=== PATIENT | male | born 1945 | race African-American/Black ===

== ENCOUNTER 2025-02-14 12:20 | Outpatient (CLI) | payer MEDICARE, SELFPAY ==
--- OUTSIDE RECORDS SUMMARY | 2025-02-14 12:48 | XMS_ITS | Encounter Summary ---
Author Organization [facility] Address Formerly [facility] [place] [address] Care Team Providers Care Screen Writer Name Role Phone Frank Nielsen MD Primary Care Provider David Bradshaw MD Unavailable [phone] Ani Burnett CURTAIN INSPECTOR-C Unavailable [phone] Yesica Tony CURTAIN INSPECTOR Unavailable [phone] Adonis Mirza OD Unavailable [phone] Reason for Visit * Reason Comments Information Encounter Details Date Type Department Care Team (Late st Contact Info) Description 04/08/2020 Clinical Support [facility] Medical Group Multispecialty Care - [facility] [address] [facility] [place] [address] Cherrie Onofre APNP [address] [place] [address] Information Social History Tobacco Use Types Packs/Day Years Used Date Smoking Tobacco: Never Smokeless Tobacco: Never Alcohol Use Standard Drinks/Week Comments Yes 0 (1 standard drink = 0.6 oz pur e alcohol) very little AUDIT-C Answer Date Recorded Frequency of Alcohol Consumption Monthly or less 10/06/2018 Average Number of Drinks Not on file 019 Frequency of Binge Drinking Not on file 03/2019 PHQ-2 Answer Date Recorded PHQ-2 Score 1 02/27/2020 Sex and Gender Information Value Date Recorded Sex Assigned at Male 10/30/2024 11:15 AM SHOE DESIGNER Legal Sex Male 9:58 AM CDT Gender Identity Not on file Sexual Orientation Not on file Occupation Industry Job Start Date Job End Date Not on file Not on file Not on file Not on file COVID-19 Exposure Response Date Recorded In the last month, have you been in contact with someone who was confirmed or suspected to have Coronavirus / COVID-19? No / Unsure 03/18/2020 1:47 PM CDT documented as of this encounter Plan of Treatment Upcoming Encounters Date Type Department Care Team (Late st Contact Info) Description 03/19/2025 9:30 AM CDT Office Visit [facility] THREE [facility], [address] [address] David Bradshaw MD Three [facility]. [address] [address] 07/31/2025 2:00 PM SHOE DESIGNER Office Visit [facility] Medical Group Multispecialty Care - [facility] [address] [facility], [address] [place] [address] Shannan Gao APRN [address] [facility] [address] [place] [address] documented as of this encounter Visit Diagnoses Not on filedocumented in this encounter Additional Health Concerns Infection Onset Date Last Indicated Resolved Time COVID-19 Rule Out 09/08/2021 09/08/2021 09/08/2021 9:34 AM SHOE DESIGNER COVID-19 Rule Out 02/17/2022 02/17/2022 02/17/2022 9:41 AM CDT COVID-19 Rule Out 08/24/2023 08/24/2023 08/24/2023 3:16 PM SHOE DESIGNER Influenza - Seasonal 08/24/2023 08/24/2023 024 12:33 AM SHOE DESIGNER COVID-19 Rule Out 05/25/2024 05/25/2024 05/25/2024 2:37 PM CDT documented as of this encounter Care Teams Screen Writer Relationship Specialty Start Date End Date Frank Nielsen MD [address] [place] [address] PCP - General 03/08/17 David Bradshaw MD Three [facility] [address] [place] [address] [place] Dental Nurse CARDIOVASCULAR DISEASE 08/24/18 Ani Burnett CURTAIN INSPECTOR-C [facility] [address] [place] [address] Nurse Practitioner CARDIOLOGY 06/14/23 Yesica Tony NP Three [facility]. [address] [place], [place] [address] Nurse Practitioner UROLOGY 06/14/23 06/14/23 Adonis Mirza, OD [address] [facility] [place] [address] Monorail Helper 06/14/23 documented as of this encounter
--- OUTSIDE RECORDS SUMMARY | 2025-02-14 12:48 | XMS_ITS | Encounter Summary ---
Author Organization [facility] Address Count includes the [facility] [place] [address] Care Team Providers Care Vacuum Kettle Cook Name Role Phone Frank Nielsen MD Primary Care Provider David Bradshaw MD Unavailable [phone] Ani Burnett FISH PROCESSING SUPERVISOR-C Unavailable [phone] Yesica Tony FISH PROCESSING SUPERVISOR Unavailable [phone] Adonis Mirza OD Unavailable Encounter Details Date Type Department Care Team (Late st Contact Info) Description 09/21/2022 Abstract [facility] BUSINESS OFFICE [facility] [place] [address] Abstract, Doc Med Group Social History Tobacco Use Types Packs/Day Years Used Date Smoking Tobacco: Never Smokeless Tobacco: Never Comments:NO Alcohol Use Standard Drinks/Week Comments Yes 0 (1 standard drink = 0.6 oz pur e alcohol) very little AUDIT-C Answer Date Recorded Frequency of Alcohol Consumption Monthly or less 10/06/2018 Average Number of Drinks Not on file 019 Frequency of Binge Drinking Not on file 03/2019 PHQ-2 Answer Date Recorded PHQ-2 Score - If the patient scores above 3, please move on to questions 3-9 0 07/30/2022 Sex and Gender Information Value Date Recorded Sex Assigned at Male 10/30/2024 11:15 AM POLICE DETENTION ATTENDANT Legal Sex Male 9:58 AM CDT Gender Identity Not on file Sexual Orientation Not on file Occupation Industry Job Start Date Job End Date Not on file Not on file Not on file Not on file COVID-19 Exposure Response Date Recorded In the last 10 days, have yo u been in contact with someone who was confirmed or suspected to have Coronavirus/COVID-19? No / Unsure 09/07/2022 2:46 PM POLICE DETENTION ATTENDANT documented as of this encounter Plan of Treatment Upcoming Encounters Date Type Department Care Team (Late st Contact Info) Description 03/19/2025 9:30 AM CDT Office [facility] [facility] [address] [place] [address] David Bradshaw MD Three [facility]. [facility] [address] [place] [address] 07/31/2025 2:00 PM POLICE DETENTION ATTENDANT Office Visit [facility] Medical Group Multispecialty Care - [facility] [address] [facility], [address] [place] [address] Shannan Gao, LETY [address] [facility] [address] [place] [address] documented as of this encounter Visit Diagnoses Not on filedocumented in this encounter Additional Health Concerns Infection Onset Date Last Indicated Resolved Time COVID-19 Rule Out 08/24/2023 08/24/2023 08/24/2023 3:16 PM POLICE DETENTION ATTENDANT Influenza - Seasonal 08/24/2023 08/24/2023 024 12:33 AM POLICE DETENTION ATTENDANT COVID-19 Rule Out 05/25/2024 05/25/2024 05/25/2024 2:37 PM CDT Assessment Noted Time PHQ-9 Depression Total Score: 0 06/09/20 21 2:07 PM CDT documented as of this encounter Care Teams Vacuum Kettle Cook Relationship Specialty Start Date End Date Frank Nielsen MD [address] [place] [address] PCP - General 03/08/17 David Bradshaw MD [facility]. [facility] [address] [place] [address] Wheelwright Spot Welder Body Assembly CARDIOVASCULAR DISEASE 08/24/18 Ani Burnett, FISH PROCESSING SUPERVISOR-C [facility]. [facility] [address] [place] [address] Nurse Practitioner CARDIOLOGY 06/14/23 Yesica Tony NP [facility]. [facility] [address] [place] [address] Nurse Practitioner UROLOGY 06/14/23 06/14/23 Adonis Mirza, OD [address] [place] [address] Group Program Manager 06/14/23 documented as of this encounter
--- OUTSIDE RECORDS SUMMARY | 2025-02-14 12:48 | XMS_ITS | Encounter Summary ---
Author Organization [facility] Facility Care Team Providers Care Facility Maintenance Helper Name Role Phone Frank Nielsen MD Primary Care Provider [phone] Naye Nunn MD Unavailable [phone] Encounter Details Date Type Department Care Team (Latest Contact Info) Description 06/06/2018 Orders Only Juventino Paniagua MD [address] [place] [address] Social History Tobacco Use Types Packs/Day Years Used Date Smoking Tobacco: Never Smokeless Tobacco: Never Alcohol Use Standard Drinks/Week Comments Yes 0 (1 standard drink = 0.6 oz pur e alcohol) social Sex and Gender Information Value Date Recorded Sex Assigned at Not on file Legal Sex Male 8:05 PM SIMPLEX OPERATOR Gender Identity Not on file Sexual Orientation Not on file documented as of this encounter Plan of Treatment Upcoming Encounters Date Type Department Care Team (Latest Contact Info) Description 09/04/2108 Orders Only Juventino Paniagua MD [address] [place] [id number] documented as of this encounter Procedures Procedure Name Priority Date/Time Associated Diagnosis Comments PROCEDURE - RESULT 06/06/2018 12 :00 AM CDT documented in this encounter Results * PROCEDURE - RESULT (06/06/2018 12:00 AM CDT) Narrative 06/06/2018 12:00 AM CDT Ordered by an unspecified provider. us Historical Provider Final Res ult documented in this encounter Visit Diagnoses Not on filedocumented in this encounter Care Teams Facility Maintenance Helper Relationship Specialty Start Date End Date Frank Nielsen MD [address] [address] PCP - General 11/22/16 Naye Nunn MD [address] [address] Consulting Physician Nephrology 04/04/19 documented as of this encounter
--- OUTSIDE RECORDS SUMMARY | 2025-02-14 12:48 | XMS_ITS | Encounter Summary ---
Author Organization [facility] Facility Care Team Providers Care Greige Mender Name Role Phone Frank Nielsen MD Primary Care Provider [phone] Naye Nunn MD Unavailable [phone] Encounter Details Date Type Department Care Team (Latest Contact Info) Description 05/31/2017 Orders Only [facility] Juventino De LaO MD [address] [place] [address] Social History Tobacco Use Types Packs/Day Years Used Date Smoking Tobacco: Never Assessed Sex and Gender Information Value Date Recorded Sex Assigned at Not on file Legal Sex Male 8:05 PM CUTTING MACHINE 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 us Historical Provider Final Res ult * SCAN - LABS (05/31/2017 12:00 AM CDT) Narrative 05/31/2017 12:00 AM CDT Ordered by an unspecified provider. Historical Provider Final Res ult documented in this encounter Visit Diagnoses Not on filedocumented in this encounter Care Teams Greige Mender Relationship Specialty Start Date End Date Frank Nielsen MD [address] [place] [address] PCP - General 11/22/16 Naye Nunn MD [address] [facility] [address] [place] [address] Consulting Physician Nephrology 04/04/19 documented as of this encounter
--- OUTSIDE RECORDS SUMMARY | 2025-02-14 12:48 | XMS_ITS | Encounter Summary ---
Author Organization [facility] Facility Care Team Providers Care Physicist Cryogenics Name Role Phone Frank Nielsen MD Primary Care Provider [phone] Naye Nunn MD Unavailable Encounter Details Date Type Department Care Team (Latest Contact Info) Description 11/30/2017 Orders Only [facility] Juventino De La O MD [address] [place] [address] Social History Tobacco Use Types Packs/Day Years Used Date Smoking Tobacco: Never Sex and Gender Information Value Date Recorded Sex Assigned at Not on file Legal Sex Male 8:05 PM HEAD FILTER TANK TENDER HELPER Gender Identity Not on file Sexual Orientation Not on file documented as of this encounter Plan of Treatment Upcoming Encounters Date Type Department Care Team (Latest Contact Info) Description 09/04/2108 Orders Only [facility] Juventino De La O MD [address] [place] [address] documented as of this encounter Procedures Procedure Name Priority Date/Time Associated Diagnosis Comments SCAN - LABS 12/22/2017 12:00 AM CDT SCAN - LABS 12/22/2017 12:00 AM CDT documented in this encounter Results * SCAN - LABS (12/22/2017 12:00 AM CDT) Narrative 12/22/2017 12:00 AM CDT Ordered by an unspecified provider. us Historical Provider Final Res ult * SCAN - LABS (12/22/2017 12:00 AM CDT) Narrative 12/22/2017 12:00 AM CDT Ordered by an unspecified provider. Historical Provider Final Res ult documented in this encounter Visit Diagnoses Not on filedocumented in this encounter Care Teams Physicist Cryogenics Relationship Specialty Start Date End Date Frank Nielsen MD [address] [place] [address] PCP - General 11/22/16 Naye Nunn MD [address] [facility] [address] [place] [address] Consulting Physician Nephrology 04/04/19 documented as of this encounter
--- OUTSIDE RECORDS SUMMARY | 2025-02-14 12:48 | XMS_ITS | Encounter Summary ---
Author Organization [facility] Facility Care Team Providers Care Fabrication Mig Welder Name Role Phone Frank Nielsen MD Primary Care Provider [phone] Naye Nunn MD Unavailable [phone] Encounter Details Date Type Department Care Team (Latest Contact Info) Description 06/24/2016 Orders Only [facility] CLINCONJuventino Tom MD [address] [place] [address] Social History Tobacco Use Types Packs/Day Years Used Date Smoking Tobacco: Never Assessed Sex and Gender Information Value Date Recorded Sex Assigned at Not on file Legal Sex Male 8:05 PM TELECOM SALES CONSULTANT Gender Identity Not on file Sexual Orientation Not on file documented as of this encounter Plan of Treatment Upcoming Encounters Date Type Department Care Team (Latest Contact Info) Description 09/04/2108 Orders Only [facility] CLINJuventino Oshea MD [address] [place] [address] documented as of this encounter Procedures Procedure Name Priority Date/Time Associated Diagnosis Comments SCAN - LABS 06/25/2016 12:00 AM CDT documented in this encounter Results * SCAN - LABS (06/25/2016 12:00 AM CDT) Narrative 06/25/2016 12:00 AM CDT Ordered by an unspecified provider. us Historical Provider Final Res ult documented in this encounter Visit Diagnoses Not on filedocumented in this encounter Care Teams Fabrication Mig Welder Relationship Specialty Start Date End Date Frank Nielsen MD [address], [place] [id number] PCP - General 11/22/16 Naye Nunn MD [address] [id number] Consulting Physician Nephrology 04/04/19 documented as of this encounter
--- OUTSIDE RECORDS SUMMARY | 2025-02-14 12:48 | XMS_ITS | Encounter Summary ---
Author Organization [facility] Facility Care Team Providers Care Engine Generator Assembler Name Role Phone Frank Nielsen MD Primary Care Provider [phone] Naye Nunn MD Unavailable [phone] Encounter Details Date Type Department Care Team (Latest Contact Info) Description 09/01/2018 Orders Only [facility] CLIN[facility] Oshea MD [address] [place] [address] Social History Tobacco Use Types Packs/Day Years Used Date Smoking Tobacco: Never Smokeless Tobacco: Never Alcohol Use Standard Drinks/Week Comments Yes 0 (1 standard drink = 0.6 oz pur e alcohol) social Sex and Gender Information Value Date Recorded Sex Assigned at Not on file Legal Sex Male 8:05 PM INTERNAL GRINDER Gender Identity Not on file Sexual Orientation Not on file documented as of this encounter Plan of Treatment Upcoming Encounters Date Type Department Care Team (Latest Contact Info) Description 09/04/2108 Orders Only [facility] CLINJuventino Oshea MD [address] [place] [phone] documented as of this encounter Procedures Procedure Name Priority Date/Time Associated Diagnosis Comments PROCEDURE - RESULT 09/01/2018 12 :00 AM INTERNAL GRINDER documented in this encounter Results * PROCEDURE - RESULT (09/01/2018 12:00 AM INTERNAL GRINDER) Narrative 09/01/2018 12:00 AM INTERNAL GRINDER Ordered by an unspecified provider. us Historical Provider Final Res ult documented in this encounter Visit Diagnoses Not on filedocumented in this encounter Care Teams Engine Generator Assembler Relationship Specialty Start Date End Date Frank Nielsen MD [address] [address] PCP - General 11/22/16 Naye Nunn MD [address] [address] Consulting Physician Nephrology 04/04/19 documented as of this encounter
--- OUTSIDE RECORDS SUMMARY | 2025-02-14 12:48 | XMS_ITS | Encounter Summary ---
Author Organization [facility] Address [facility] [place] [address] Care Team Providers Care Human Resources Specialist Name Role Phone Frank Nielsen MD Primary Care Provider David Bradshaw MD Unavailable [phone] Ciara Weaver PharmD Unavailable [phone] Ani Burnett BIOCHEMISTRY TEACHER-C Unavailable [phone] Yesica Tony BIOCHEMISTRY TEACHER Unavailable [phone] Adonis Mirza OD Unavailable [phone] Encounter Details Date Type Department Care Team (Late st Contact Info) Description 12/05/2017 Community Orders [facility] Papa Ball MD [address] [facility] [address] [address] Social History Tobacco Use Types Packs/Day Years Used Date Smoking Tobacco: Never Assessed Sex and Gender Information Value Date Recorded Sex Assigned at Male 10/30/2024 11:15 AM HOSPITAL PERSONNEL DIRECTOR Legal Sex Male 9:58 AM CDT Gender Identity Not on file Sexual Orientation Not on file documented as of this encounter Plan of Treatment Upcoming Encounters Date Type Department Care Team (Late st Contact Info) Description 03/19/2025 9:30 AM CDT Office Visit [facility], [address] [address] David Bradshaw MD Three [facility]. [address] [place] [address] 07/31/2025 2:00 PM HOSPITAL PERSONNEL DIRECTOR Office Visit [facility] Multispecialty Care - [facility] [address] [facility], [address] [place] [address] Shannan Gao, LANDSCAPE ARCHITECTURE PROFESSOR 3 [facility] [address] [place] [address] documented as of this encounter Visit Diagnoses Not on filedocumented in this encounter Additional Health Concerns Infection Onset Date Last Indicated Resolved Time COVID-19 Rule Out 09/08/2021 09/08/2021 09/08/2021 9:34 AM HOSPITAL PERSONNEL DIRECTOR COVID-19 Rule Out 02/17/2022 02/17/2022 02/17/2022 9:41 AM CDT COVID-19 Rule Out 08/24/2023 08/24/2023 08/24/2023 3:16 PM HOSPITAL PERSONNEL DIRECTOR Influenza - Seasonal 08/24/2023 08/24/2023 024 12:33 AM HOSPITAL PERSONNEL DIRECTOR COVID-19 Rule Out 05/25/2024 05/25/2024 05/25/2024 2:37 PM CDT documented as of this encounter Care Teams Human Resources Specialist Relationship Specialty Start Date End Date Frank Nielsen MD [address] [place] [address] PCP - General 03/08/17 David Bradshaw MD Three [facility]. [address] [place] [address] [place] Marketing Performance Analyst CARDIOVASCULAR DISEASE 08/24/18 Ciara Weaver, PharmD [address] [place] [address] Pharmacist Pharmacist 09/08/18 07/09/19 Ani Burnett NP-C [address] [address] Nurse Practitioner CARDIOLOGY 06/14/23 Yesica Tony NP [address] [id number] Nurse Practitioner UROLOGY 06/14/23 06/14/23 Adonis Mirza, OD [address] [place], [place] [phone] Peeled Potato Inspector 06/14/23 documented as of this encounter
--- OUTSIDE RECORDS SUMMARY | 2025-02-14 12:48 | XMS_ITS | Referral Summary ---
Author Organization [facility] Address [address] [place] [address] Care Team Providers Care Community Planner Name Role Phone Frank Nielsen MD Primary Care Provider [phone] Naye Nunn MD Unavailable [phone] Encounters Date Type Department Care Team Description 01/15/2025 Telephone [facility] Department of Surgery [facility] 12th [place] [address] [place] [address] Tami Brooks RMA Additional Services Or Orders 12/13/2024 10:30 AM CDT Office Visit [facility] Surgery [address] [place] [phone] Moshe Eaton MD Bilateral inguinal hernia without obstruction or gangrene, recurrence not specified 12/12/2024 Telephone [facility] Department of Surgery [facility] 12th [place] [address] [place] [phone] Isi Deleon 12/11/2024 Telephone [facility] Surgery [address] [place] [phone] Isi Deleon 12/06/2024 3:00 PM CDT - 12/06/2024 3:30 PM CDT Surgery [facility] [address] [place] [address] Guille Shore MD EGD SG/OA Interventional 12/06/2024 2:55 PM CDT Anesthesia Event [facility] [address] [place] [address] Arnav Hale MD 12/06/2024 1:32 PM CDT - 12/06/2024 3:45 PM CDT Hospital Encounter [facility] [address] [place] [address] Guille Shore MD Discharge Disposition: Discharge to home or self care 11/28/2024 Telephone [facility] [address] [place] [address] [address] [facility] [place] [phone] Ney Kenny MD 11/27/2024 Telephone [facility] Specialty Services [address] [place] [phone] Lana Mo RN GI Preprocedure 11/26/2024 3:00 PM CDT Office Visit [facility] Minimally Invasive Surgery [address] [place] [address] Medical Office Building [address] [place] [phone] Niles Darling NP Other specified intestinal malabsorption (Primary Dx); BMI 29.0-29.9,adult; Bariatric surgery status; Epigastric abdominal pain; Gastroesophageal reflux disease, unspecified whether esophagitis present from Last 3 Months Allergies Active Allergy Reactions Criticality Noted Date Comments Nsaids (Non-Steroidal Anti-I nflammatory Drug) Rash Medium 08/17/2018 Penicillamine Unknown 03/05/2019 Penicillins Itching Low Medications acetaminophen (TYLENOL) 500 mg tablet TAKE ONE TABLET NEEDED 6 Active cholecalciferol , vitamin D3, 5,000 unit/mL drops qd Active atorvastatin (LIPITOR) 20 mg tablet Take 1 tablet (20 mg total) by mouth daily 8 Active ACCU-CHEK KAREEM PLUS TEST STRP strip 8 Active pioglitazone (ACTOS) 30 mg tablet Take 1 tablet (30 mg total) by mouth daily 3 8 Active tamsulosin (FLOMAX) 0.4 mg extended release capsule Take 1 capsule (0.4 mg total) by mouth daily 9 Active propranoloL (INDERAL) 60 mg tablet Take 1 tablet (60 mg total) by mouth daily 0 Active losartan (COZAAR) 50 mg tablet Take 1 tablet (50 mg total) by mouth daily Active Linzess 145 mcg capsule 1 capsule (145 mcg total) as needed 2 Active azelastine (ASTELIN) 137 mcg (0.1 %) nasal spray Administer 1 spray into each nostril 2 (two) times a day Use in each nostril as directed 30 mL 3 2 Active cetirizine (ZyrTEC) 10 mg tablet Take 1 tablet (10 mg total) by mouth daily 3 Active Ozempic 1 mg/dose (4 mg/3 mL) pen injector injection INJECT 1 MG INTO THE SKIN EVERY 7 DAYS. 3 Active calcitRIOL (ROCALTROL) 0.25 mcg capsule TAKE 1 CAPSULE BY MOUTH EVERY DAY 90 capsule 4 Active albuterol HFA (PROVENTIL HFA,VENTOLIN HFA,PROAIR HFA) 90 mcg/actuation inhaler INHALE 2 PUFFS INTO THE LUNGS EVERY 6 HOURS NEEDED FOR WHEEZE 4 Active Jardiance 25 mg tablet Take 1 tablet (25 mg total) by mouth daily Active omeprazole (PriLOSEC) 40 mg capsule Take 1 capsule (40 mg total) by mouth daily 5 Active cyanocobalamin (vitamin B-12) 500 mcg tablet Take 1 tablet (500 mcg total) by mouth daily 30 tablet 11 5 Active Active Problems Problem Noted Date Diagnosed Date Gastric intestinal metaplasia 10/17/2023 Restrictive lung disease 06/22/2023 Hiatal hernia 06/22/2023 BMI 32.0-32.9,adult 01/19/2023 Abnormal resting electrocardiogram findings 11/2022 Asymptomatic premature ventricular contractions 09/01/2022 Congestive heart failure wit h left ventricular diastolic dysfunction 09/01/2022 History of migraine headaches 09/01/2022 PAD (peripheral artery disease) 09/01/2022 Calculus of gallbladder with out cholecystitis without obstruction 09/01/2022 Thyroid enlargement 09/01/2022 Mucopurulent chronic bronchitis 07/14/2022 Elevated IgE level 07/14/2022 Nonsmoker 05/19/2022 Posterior rhinorrhea 05/19/2022 Chronic cough 05/19/2022 Moderate persistent asthma without complication 05/19/2022 Hypersomnia 05/19/2022 Psychophysiological insomnia 05/19/2022 Non-seasonal allergic rhinitis due to pollen 03/2022 Atypical chest pain 03/18/2020 Hypomagnesemia 08/07/2019 Chronic obstructive asthma 10/06/2018 History of arthroplasty of left knee 09/28/2018 Night sweats 07/03/2018 Anemia 12/26/2017 Vitamin B12 deficiency 12/26/2017 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 11/21/2017 Sciatica 05/31/2017 History of surgical procedure 04/01/2017 Gastroesophageal reflux disease with stricture 0 04/01/2017 Difficulty eating 04/01/2017 History of anemia due to CKD 06/30/2016 Secondary hyperparathyroidism 06/30/2016 Diabetic peripheral neuropathy 05/21/2016 Stage 3b chronic kidney disease 05/19/2016 Simple obesity 03/15/2016 Enlarged prostate without lo wer urinary tract symptoms (luts) 01/16/2016 Orthostatic hypotension 01/16/2016 Male erectile disorder 11/24/2015 OAB (overactive bladder) 11/24/2015 AC (acromioclavicular) joint arthritis 6 Constipation in pediatric patient 06/03/2015 Lumbar radiculopathy 02/25/2015 Stomatitis, ulcerative 12/10/2014 FERMIN (obstructive sleep apnea) 02/28/2014 Polyposis coli 03/09/2013 Benign familial tremor 10/25/2012 Type 2 diabetes mellitus wit h stage 3b chronic kidney disease, without long-term current use of insulin 07/25/2012 Mixed hyperlipidemia 07/25/2012 Osteoarthritis 07/25/2012 Acquired hypothyroidism 07/25/2012 Essential hypertension 05/10/2012 Mild intermittent asthma with acute exacerbation 05/10/2012 Reflux esophagitis 05/10/2012 Social History Tobacco Use Types Packs/Day Years Used Date Smoking Tobacco: Never Passive Smoke Exposure: Never Smokeless Tobacco: Never Alcohol Use Standard Drinks/Week Comments Yes 0 (1 standard drink = 0.6 oz pur e alcohol) social AUDIT-C Answer Date Recorded Q1: How often do you have a drink containing alc ohol? 2-4 times a month 12/06/2024 Q2: How many drinks containi ng alcohol do you have on a typical day when you are drinking? 1 or 2 12/06/2024 Q3: How often do you have si x or more drinks on one occasion? Never 12/06/2024 Personal Safety Answer Date Recorded Have you ever been in or are you currently in a harmful physical or emotional relationship or is someone making you feel afraid or unsafe? 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 Gender Identity Not on file Sexual Orientation Not on file Occupation Industry Job Start Date Job End Date retired Not on file Not on file Not on file Last Filed Vital Signs Vital Sign Reading Time Taken Comments Blood Pressure 112/68 12/13/2024 10:37 AM CDT Pulse 68 12/13/2024 10:37 AM CDT Temperature 36.2 C (97.2 F) 12/06/2024 3:10 PM CDT Respiratory Rate 12 12/13/2024 10:37 AM CDT Oxygen Saturation 95% 12/06/2024 3:35 PM CDT Inhaled Oxygen Concentration - - Weight 105.2 kg (232 lb) 12/13/2024 10:37 AM CDT Height 185.4 cm (6' 1) 12/13/2024 10:37 AM CDT Body Mass Index 30.61 12/13/2024 10:37 AM CDT Plan of Treatment Upcoming Encounters Date Type Department Care Team (Latest Contact Info) Description 09/04/2108 Orders Only [facility]IN[facility] ProviderJuventino MD [address] [place] [address] Procedures Procedure Name Priority Date/Time Associated Diagnosis Comments POCT GLUCOSE DEVICE Routine 12/06/2024 3 :29 PM CDT ESOPHAGOGASTRODUODENOSCOPY 12/06 2:54 PM CDT BMI 29.0-29.9,adult Bariatric surgery status Epigastric abdominal pain Gastroesophageal reflux disease, unspecified whether esophagitis present EGD 12/06/2024 2:44 PM CDT POCT GLUCOSE DEVICE Routine 12/06/2024 1 :53 PM CDT EGFR Routine 08/14/2024 9:15 AM SALES ASSOCIATE KEY HOLDER Stage 3b chronic kidney disease (HCC) HEMOGLOBIN A1C Routine 10/17/2023 11:00 AM SALES ASSOCIATE KEY HOLDER LIPID PANEL Routine 10/17/2023 11:00 AM SALES ASSOCIATE KEY HOLDER PSA SCREEN Routine 02/09/2023 11:46 AM CDT from Last 3 Months or Most Recently Relevant to Health Maintenance Results * POCT glucose (12/06/2024 3:29 PM CDT) [facility] Glucose, POC 72 70 - 199 mg/dL Comment: Interpretive Data Glucose is assumed to be non-fasting. Fasting Glucose reference ranges are: 0 - 150 years: 70 mg/dL - 99 mg/dL Current interpretive data was last revised on 2014. POC Performer [id number] ANGIE [facility] POC Device Number [id number] ANGIE BJW[facility] Blood 12/06/2024 3:29 PM CDT 12/06/2024 3:29 PM CDT us Guille Davey MD LAB POCT ORDERABLES - DEVICE Final [facility] [address] [facility] [place] [address] * EGD (12/06/2024 2:44 PM CDT) Anatomical Region Laterality Modality Other Narrative Procedure Note Guille Shore MD - 12/06/2024 2:44 PM CDT ENDOSCOPY LAB Patient Name: Tarik Larios Procedure Date: 12/06/2024 2:44 PM Date of : 1945 Admit Type: Outpatient Age: 79 Gender: Male Attending MD: Guille Davey M.D. Room: [facility] ENDOSCOPY ROOM 04 Note Status: Finalized Procedure: Upper GI endoscopy Indications: Upper abdominal symptoms associated with other symptoms suggesting structural disease. History of gastric sleeve is noted. Providers: Guille Davey M.D. Referring MD: JLUIS William Medicines: Monitored Anesthesia Care Complications: No immediate complications. Estimated Blood Loss: Estimated blood loss: none. Procedure: Pre-Anesthesia Assessment: - The risks and benefits of the procedure and the sedation options and risks were discussed with the patient. All questions were answered and informed consent was obtained. - Immediately prior to administration ofmedications, the patient was re-assessed for adequacy to receive sedatives. After obtaining informed consent, the endoscope was passed under direct vision. Throughout theprocedure, the patient's blood pressure, pulse, and oxygen saturations were monitored continuously.The upperGI endoscopy was accomplished without difficulty. The patient tolerated the procedure well. The [id number] was introduced through the mouth, and advanced to the second part of duodenum. Findings: The examined esophagus was normal. Evidence of a sleeve gastrectomy was found in the gastric body. Thiswas characterized by healthy appearing mucosa. The examined duodenum was normal. Impression: - Normal sleeve gastrectomy was found,characterized by healthy appearing mucosa. No endoscopic findings that would explain dyspeptic symptoms. Recommendation: - Follow-up with your referring provider (indicatedin the report above) as indicated. - In the unusual situation that you developabdominal pain, bleeding or other significant problems in the days following this procedure please call my officeat [phone] ([phone]) to speak to my nurses. After hours and evenings please call [phone] speak to the GI fellow degreasing solution reclaimer. Please tell themthat Dr. Davey did your procedure and that your were instructed to have the fellow call me or thephysician covering for me to discuss the management of your condition. If you have an urgent problem, please goto the nearest emergency room and have the ER doctorcall my office during the day or [facility] transfer ([phone]) center after hours and weekends to arrange admission or transfer to our facility. - The outlined recommendations within this reportwere discussed with you following the procedure. Attending Participation: I personally performed the entire procedure. Electronically signed by Guille Davey MD Guille Davey M.D. 12/06/2024 3:04:58 PM Number of Addenda: 0 Note Initiated On: 12/06/2024 2:44 PM Guille Davey MD ENDOSCOPY PROCEDURES Final Result * POCT glucose (12/06/2024 1:53 PM CDT) Pathologist [facility] Glucose, POC 72 70 - 199 mg/dL Comment: Interpretive Data Glucose is assumed to be non-fasting. Fasting Glucose reference ranges are: 0 - 150 years: 70 mg/dL - 99 mg/dL Current interpretive data was last revised on 2014. POC Performer [id number] ANGIE BJWCH POC Device Number [id number] ANGIE GANNONWCH Blood 12/06/2024 1:53 PM CDT 12/06/2024 1:53 PM CDT Guille Davey MD LAB POCT ORDERABLES - DEVICE Final Result Performing Organization Address City/[facility]/ZIP Co de Phone Number ANGIE [facility] [address] [facility] [place] [address] * (ABNORMAL) eGFR (08/14/2024 9:15 AM SALES ASSOCIATE KEY HOLDER) eGFR 47(L) >=60 mL/min/1. 73 m2 Comment: Interpretive Data Reference Interval Normal >/= 90 mL/min/1.73m2 Mildly decreased* 60 - 89 mL/min/1.73m2 Mildly to moderately decreased 45 - 59 mL/min/1.73m2 Moderately to severely decreased 30 - 44 mL/min/1.73m2 Severely decreased 15 - 29 mL/min/1.73m2 Kidney Failure < 15 mL/min/1.73m2 *Relative to young adult level Estimated glomerular filtration rate is determined by the 2020 CKD-EPI equation recommended by the National Kidney Foundation (A Unifying Approach to GFR Estimation: Recommendations of the NKF-ASK Task Force on Reassessing the Inclusion of Race in Diagnosing Kidney Disease, JASN 2020). The CKD-EPI equation should not be used for patients with unstable renal function and has not been validated in children and those over 70. Current interpretive data was last reviewed 2021. Blood 08/14/2024 9:15 AM SALES ASSOCIATE KEY HOLDER 08/14/2024 9:48 AM SALES ASSOCIATE KEY HOLDER us Naye Nunn MD LAB BLOOD ORDERABLES Final Result ANGIE [address] [facility] [place] [address] * (ABNORMAL) Hemoglobin A1c (10/17/2023 11:00 AM SALES ASSOCIATE KEY HOLDER) Hgb A1C 5.9(H) 4.0 - 5.6 % ANGIE Estimated Average Glucose 123 mg/dL ANGIE Comment: The ADA recommends reporting an estimated Average Glucose (eAG) with all Hemoglobin A1c results using the equation derived from a study of 507 normal and diabetic adults. Minority populations were underrepresented and children were not included. (Diabetes Care 31:6263-5349, 2008). The eAG is not equivalent to a fasting glucose. Blood 10/17/2023 11:0 0 AM SALES ASSOCIATE KEY HOLDER 10/17/2023 11:16 AM SALES ASSOCIATE KEY HOLDER us Frank Nielsen MD LAB BLOOD ORDERABLES Final Result ANGIE [address] [facility] Department of Laboratories [place] [id number] * Lipid panel (10/17/2023 11:00 AM SALES ASSOCIATE KEY HOLDER) Cholesterol 136 30 - 199 mg/dL ANGIE Comment: Interpretive Data Ages < or = 19 years Acceptable: <170 mg/dL Borderline high: 170-199 mg/dL High: >or= 200 mg/dL Ages > or = 20 years Desirable: <200 mg/dL Borderline high: 200-239 mg/dL High: >or= 240 mg/dL Literature References: 1. Expert Panel on Integrated Guidelines for Cardiovascular Health and Risk Reduction in Children and Adolescents. Pediatrics 2011;128:S213 2. NCEP Expert Panel. Circulation 2004;110:227 Current Interpretive Data was last revised on 2018. Triglycerides 30 <=149 mg/dL ANGIE Comment: Interpretive Data Ages < or = 9 years Acceptable: <75 mg/dL Borderline high: 75-99 mg/dL High: >or= 100 mg/dL Ages 10 to 20 years Acceptable: <90 mg/dL Borderline high: 90-129 mg/dL High: >or= 130 mg/dL Ages > or = 20 years Desirable: <150 mg/dL Borderline high: 150-199 mg/dL High: 200-499 mg/dL Very high: >or= 499 mg/dL Literature References: 1. Expert Panel on Integrated Guidelines for Cardiovascular Health and Risk Reduction in Children and Adolescents. Pediatrics 2011;128:S213 2. NCEP Expert Panel. Circulation 2004;110:227 Current Interpretive Data was last revised on 2018. HDL 63 >=40 mg/dL ANGIE Comment: Interpretive Data Ages < or = 19 years Acceptable: >45 mg/dL Borderline low: 40-45 mg/dL Low: <40 mg/dL Ages > or = 20 years Desirable: >or= 60 mg/dL Low: <40 mg/dL Literature References: 1. Expert Panel on Integrated Guidelines for Cardiovascular Health and Risk Reduction in Children and Adolescents. Pediatrics 2011;128:S213 2. NCEP Expert Panel. Circulation 2004;110:227 Current Interpretive Data was last revised on 2018. LDL, calculated 67 <=129 mg/dL ANGIE Comment: Interpretive Data Ages < or = 19 years Acceptable: <110 mg/dL Borderline high: 110-129 mg/dL High: >or= 130 mg/dL Ages > or = 20 years Optimal: <100 mg/dL Near optimal: 100-129 mg/dL Borderline high: 130-159 mg/dL High: >160 mg/dL Literature References: 1. Expert Panel on Integrated Guidelines for Cardiovascular Health and Risk Reduction in Children and Adolescents. Pediatrics 2011;128:S213 2. NCEP Expert Panel. Circulation 2004;110:227 Current Interpretive Data was last revised on 2018. Non-HDL Cholesterol 73 mg/dL ANGIE Comment: Interpretive Data Ages < or = 19 years Acceptable: <120 mg/dL Borderline high: 120-144 mg/dL High: >145 mg/dL Ages > or = 20 years When triglycerides are >200 mg/dL, Non-HDL cholesterol is a secondary target of therapy with treatment goals that are 30 mg/dL greater than the LDL cholesterol target. Literature References: 1. Expert Panel on Integrated Guidelines for Cardiovascular Health and Risk Reduction in Children and Adolescents. Pediatrics 2011;128:S213 2. NCEP Expert Panel. Circulation 2004;110:227 Current Interpretive Data was last revised on 2018. Chol/HDL ratio 2 ANGIE Blood 10/17/2023 11:0 0 AM SALES ASSOCIATE KEY HOLDER 10/17/2023 11:16 AM SALES ASSOCIATE KEY HOLDER Frank Nielsen MD LAB BLOOD ORDERABLES Final Result Performing Organization Address [facility] de Phone Number ANGIE [address] [place] [address] * PSA screen (02/09/2023 11:46 AM CDT) PSA-Total 0.87 <=6.20 ng/mL ANGIE Comment: Interpretive Data AGE SEX REFERENCE INTERVAL 0 minutes-150 years Female None 0 minutes-49 years Male None 50-59 years Male 0-3.90 60-69 years Male 0-5.40 70-79 years Male 0-6.20 80-150 years Male 0-6.20 The Shree PSA Total assay procedure was used. Results from different manufacturers or methods may not be comparable. Serial testing should be performed using the same method. Current interpretive data last revised 21. Blood 02/09/2023 11:4 6 AM CDT 02/09/2023 12:45 PM CDT Salvador Taversa MD LAB BLOOD ORDERABLES Fi nal Result Performing Organization Address [facility] de Phone Number ANGIE [address] [place] [address] from Last 3 Months or Most Recently Relevant to Health Maintenance [place] [address] 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 ADVANCE DIRECTIVE 05/24/2019 12:00 AM SARAH [employer] * Full Code (Latest Code Status on File) Date Activated Date Inactivated Comments 12/06/2024 1:33 PM 12/06/2024 7:50 PM * Full Code Date Activated Date Inactivated Comments 10/18/2023 9:37 AM 10/18/2023 4:17 PM * Full Code Date Activated Date Inactivated Comments 10/20/2022 11:03 AM 10/20/2022 5:50 PM Care Teams Community Planner Relationship Specialty Start Date End Date Frank Nielsen MD [address] [facility] [address] [place] [address] PCP - General 11/22/16 Naye Nunn MD [address] [facility] [address] [place] [address] Consulting Physician Nephrology 04/04/19
--- OUTSIDE RECORDS SUMMARY | 2025-02-14 12:48 | XMS_ITS | Clinical Summary ---
Author Organization [facility] Address [address] [facility] [place] [address] Care Team Providers Care Welder Apprentice Combination Name Role Phone Frank Nielsen MD Primary Care Provider Source Comments [facility],non-owned Affiliates and Associated Physician Practices is amultiple site organization consisting of ambulatory clinics and hospital sitesin [place], [place], [place] and [place]. This disclosure is being madepursuant to the Care Everywhere program and may not contain all information available regarding this patient. Last updated 18.[facility] [employer] Allergies Active Allergy Reactions Criticality Noted Date Comments Penicillins 07/05/2015 Medications * Be aware that medications may not be up to date on this document. Alwaysverify current medications with the patient. METFORMIN HCL ER, MOD, PO Active ALBUTEROL SULFATE IN Active OtherIndication s:blood pressure medication Reasons: blood pressure medication Active hydrocodone-lissette taminophen (NORCO) 5-325 MG tablet Take 1 Tab by mouth every 4 hours as needed for Pain 15 Tab 0 5 Active Social History Tobacco Use Types Packs/Day Years Used Date Smoking Tobacco: Never Alcohol Use Standard Drinks/Week Comments Yes 0 (1 standard drink = 0.6 oz pur e alcohol) Sex and Gender Information Value Date Recorded Sex Assigned at Not on file Legal Sex Male 5:56 AM WINDOW INSTALLER Gender Identity Not on file Sexual Orientation Not on file Last Filed Vital Signs Vital Sign Reading Time Taken Comments Blood Pressure 90/58 07/05/2015 5:13 PM WINDOW INSTALLER Pulse 77 07/05/2015 5:13 PM WINDOW INSTALLER Temperature 36.8 C (98.2 F) 07/05/2015 5:13 PM WINDOW INSTALLER Respiratory Rate 18 07/05/2015 5:13 PM WINDOW INSTALLER Oxygen Saturation 97% 07/05/2015 5:13 PM WINDOW INSTALLER Inhaled Oxygen Concentration - - Weight 126.1 kg (278 lb) 07/05/2015 3:44 PM WINDOW INSTALLER Height 185.4 cm (6' 0.99) 07/05/2015 3:44 PM CS T Body Mass Index 36.69 07/05/2015 3:44 PM WINDOW INSTALLER Plan of Treatment Health Maintenance Due Date Last Done Comments HEPATITIS C SCREENING 05/09/1963 DTAP/TDAP/TD VACCINES (1 - Tdap) 1966 PNEUMOCOCCAL VACCINE 50+ (1 of 1 - PCV) 1997 ZOSTER VACCINE (1 of 2) 1997 Respiratory Syncytial Virus (RSV) Vaccine Pt: or over 60 yrs (1 - 1-dose 75+ series) 2022 COVID-19 VACCINE (4 - 2023-2 5 season) 2024 09/28/2021, 10/31/2020, 09/24/2020 DEPRESSION SCREENING 08/29/2024 INFLUENZA VACCINE (Season Ended) 2025 07/03/2018 HEPATITIS B VACCINE Aged Out No longe r eligible based on patient's age to complete this topic HIB VACCINE Aged Out No longer eligi ble based on patient's age to complete this topic HPV VACCINE Aged Out No longer eligi ble based on patient's age to complete this topic MENINGOCOCCAL (Group B) VACCINE SHARED DECISION-MAKING Aged Out No longer eligible based on patient's age to complete this topic MENINGOCOCCAL GROUPS A/C/Y/W VACCINE Aged Out No longer eligible b ased on patient's age to complete this topic Insurance [employer] Liability COVENTRY MEDICARE Care Teams Welder Apprentice Combination Relationship Specialty Start Date End Date Frank Nielsen MD PCP - General Family Medicine 07/05/15
--- OUTSIDE RECORDS SUMMARY | 2025-02-14 12:48 | XMS_ITS | Encounter Summary ---
Author Organization [facility] Facility Care Team Providers Care Nut Steamer Name Role Phone Frank Nielsen MD Primary Care Provider [phone] Naye Nunn MD Unavailable [phone] Encounter Details Date Type Department Care Team (Latest Contact Info) Description 09/04/2018 Orders Only [facility] CLINJuventino Oshea MD [address] [place] [id number] Social History Tobacco Use Types Packs/Day Years Used Date Smoking Tobacco: Never Smokeless Tobacco: Never Alcohol Use Standard Drinks/Week Comments Yes 0 (1 standard drink = 0.6 oz pur e alcohol) social Sex and Gender Information Value Date Recorded Sex Assigned at Not on file Legal Sex Male 8:05 PM 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 TECHNICIAN Gender Identity Not on file Sexual Orientation Not on file documented as of this encounter Plan of Treatment Upcoming Encounters Date Type Department Care Team (Latest Contact Info) Description 09/04/2108 Orders Only Juventino Paniagua MD [address] [place] [address] [phone] documented as of this encounter Procedures Procedure Name Priority Date/Time Associated Diagnosis Comments PROCEDURE - RESULT 09/04/2018 12 :00 AM RACKING TECHNICIAN documented in this encounter Results * PROCEDURE - RESULT (09/04/2018 12:00 AM RACKING TECHNICIAN) Narrative 09/04/2018 12:00 AM RACKING TECHNICIAN Ordered by an unspecified provider. us Historical Provider Final Res ult documented in this encounter Visit Diagnoses Not on filedocumented in this encounter Care Teams Nut Steamer Relationship Specialty Start Date End Date Frank Nielsen MD [address] [address] PCP - General 11/22/16 Naye Nunn MD [address] [address] Consulting Physician Nephrology 04/04/19 documented as of this encounter
--- OUTSIDE RECORDS SUMMARY | 2025-02-14 12:48 | XMS_ITS | Encounter Summary ---
Author Organization [facility] Address [facility] [place] [address] Care Team Providers Care Senior Software Tester Name Role Phone Frank Nielsen MD Primary Care Provider David Bradshaw MD Unavailable [phone] Ciara Weaver PharmD Unavailable [phone] Ani Burnett DIRECTOR OF VOCATIONAL GUIDANCE-C Unavailable [phone] Yesica Tony DIRECTOR OF VOCATIONAL GUIDANCE Unavailable [phone] Adonis Mirza OD Unavailable [phone] Reason for Visit * Reason Onset Date Comments Hospital Follow Up 07/03/2019 Encounter Details Date Type Department Care Team (Latest Contact Info) Description 07/03/2019 Patient Outreach [facility] Mult[facility] - [address] , [address] [place] [address] Carmen Barlow, RN [address] [place] [address] Hospital Follow Up Social History Tobacco Use Types Packs/Day Years [...] 03/2019 PHQ-2 Answer Date Recorded PHQ-2 Score 0 11/26/2018 Sex and Gender Information Value Date Recorded Sex Assigned at Male 10/30/2024 11:15 AM DELI/BAKERY ASSOCIATE Legal Sex Male 9:58 AM CDT Gender Identity Not on file Sexual Orientation Not on file Occupation Industry Job Start Date Job End Date Not on file Not on file Not on file Not on file documented as of this encounter Plan of Treatment Upcoming Encounters Date Type Department Care Team (Late st Contact Info) Description 03/19/2025 9:30 AM CDT Office Visit [facility] [facility] [place] [address] David Bradshaw MD [facility]. [address] [place] [address] 07/31/2025 2:00 PM DELI/BAKERY ASSOCIATE Office Visit [facility]pec[facility] - [facility] [address] [facility], [address] [place] [address] Shannan Gao APRN [address] [facility] [address] [place] [address] documented as of this encounter Visit Diagnoses Not on filedocumented in this encounter Additional Health Concerns Infection Onset Date Last Indicated Resolved Time COVID-19 Rule Out 09/08/2021 09/08/2021 09/08/2021 9:34 AM DELI/BAKERY ASSOCIATE COVID-19 Rule Out 02/17/2022 02/17/2022 02/17/2022 9:41 AM CDT COVID-19 Rule Out 08/24/2023 08/24/2023 08/24/2023 3:16 PM DELI/BAKERY ASSOCIATE Influenza - Seasonal 08/24/2023 08/24/2023 024 12:33 AM DELI/BAKERY ASSOCIATE COVID-19 Rule Out 05/25/2024 05/25/2024 05/25/2024 2:37 PM CDT documented as of this encounter Care Teams Senior Software Tester Relationship Specialty Start Date End Date Frank Nielsen MD [address] [facility] [address] [place] [address] PCP - General 03/08/17 David Bardshaw MD [facility]. [facility] [address] [place] [address] [place] [employer] CARDIOVASCULAR DISEASE 08/24/18 Ciara Weaver, PharmD [address] [place], [place] [id number] Pharmacist Pharmacist 09/08/18 07/09/19 Ani Burnett NP-C [facility]. [facility] [address] [place] [address] Nurse Practitioner CARDIOLOGY 06/14/23 Yesica Tony NP [facility]. [facility] [address] [place] [address] Nurse Practitioner UROLOGY 06/14/23 06/14/23 Adonis Mirza, OD [address] [place] [address] Laundry Supervisor 06/14/23 documented as of this encounter
--- OUTSIDE RECORDS SUMMARY | 2025-02-14 12:48 | XMS_ITS | Clinical Summary ---
Author Organization [facility] Address [facility] [place] [address] Care Team Providers Care Check Airman Name Role Phone Frank Nielsen MD Primary Care Provider David Bradshaw MD Unavailable [phone] Ani Burnett OVERCOILER-C Unavailable [phone] Adonis Mirza OD Unavailable [phone] Allergies Active Allergy Reactions Criticality Noted Date Comments Nsaids Rash Medium 08/17/2018 Penicillins Rash Low 08/17/2018 Penicillamine Unknown 03/05/2019 Medications acetaminophen 500 MG tablet 1000 mg by mouth twice a day prn 016 Active vitamin D3, cholecalciferol, 5000 UNITS capsuleIndication s:Vitamin D deficiency Take 1 capsule (5,000 Units total) by mouth daily. 90 capsule 3 019 Active nortriptyline 25 MG capsuleIndication s:per [facility] med list 06/15/19 Take 1 capsule (25 mg total) by mouth nightly at bedtime. Indications: per [facility] med list 06/15/19 Active calcitriol 0.25 MCG capsule Take 1 capsule (0.25 mcg total) by mouth daily. 021 Active Blood Glucose Monitoring Suppl (ACCU-CHEK ANDREINA PLUS) w/Device KitIndications:Ty pe 2 diabetes mellitus with stage 3 chronic kidney disease, without long-term current use of insulin ([facility]) TEST TWO TIMES DAILY 1 kit 021 Active Blood Glucose Calibration (ACCU-CHEK ANDREINA) SolutionIndicatio ns:Type 2 diabetes mellitus with stage 3 chronic kidney disease, without long-term current use of insulin ([facility]) Use to calibrate the Accu-Check Andreina glucometer for testing blood glucose bid. 1 each 1 021 Active Glucose Blood (ACCU-CHEK ANDREINA PLUS) test stripIndications: Type 2 diabetes mellitus with stage 3 chronic kidney disease, without long-term current use of insulin ([facility]) TEST BLOOD SUGAR DAILY FOR DM E11.9 100 strip 3 Active SOFTCLIX LANCETS MiscIndications:T ype 2 diabetes mellitus with stage 3 chronic kidney disease, without long-term current use of insulin ([facility]) TEST BLOOD SUGAR TWICE DAILY 200 each 1 021 Active Alcohol Swabs (B-D SINGLE USE SWABS REGULAR) PadsIndications:T ype 2 diabetes mellitus with stage 3 chronic kidney disease, without long-term current use of insulin ([facility]) 1 each by Does not apply route 2 (two) times a day. 100 each 2 021 Active AZELASTINE 137 MCG/SPRAY nasal spray 1 spray by Nasal route 2 (two) times daily. 022 Active atorvastatin (LIPITOR) 20 MG tabletIndications :Hyperlipidemia, unspecified hyperlipidemia type TAKE 1 TABLET AT BEDTIME 90 tablet 2 023 Active linaCLOtide (LINZESS) 145 MCG capsuleIndication s:Chronic idiopathic constipation TAKE 1 CAPSULE BY MOUTH EVERY MORNING BEFORE BREAKFAST. TAKE ON EMPTY STOMACH AT LEAST 30 MINUTES PRIOR TO THE FIRST MEAL OF THE DAY. 90 capsule 3 023 Active cetirizine (ZYRTEC) 10 MG tabletIndications :Seasonal allergic rhinitis due to pollen Take 1 tablet (10 mg total) by mouth daily. 30 tablet 5 023 Active Additional Information Patient taking differently:10 mg OralDAILY PRN, Reported on 10/31/2024 propranolol (INDERAL) 60 MG tabletIndications :Essential tremor TAKE 1 TABLET (60 MG TOTAL) BY MOUTH 2 (TWO) TIMES DAILY. 180 tablet 3 024 Active TRELEGY ELLIPTA 200-62.5-25 MCG/ACT AEROSOL POWDER, BREATH ACTIVATEDIndicati ons:Severe persistent asthma with acute exacerbation ([facility]) Inhale 1 puff into the lungs daily. 30 each 11 024 Active albuterol sulfate HFA 108 (90 Base) MCG/ACT inhalerIndication s:Severe persistent asthma with acute exacerbation ([facility]) Inhale 2 puffs into the lungs every 6 (six) hours as needed for Wheezing. 54 g 3 024 Active empagliflozin (JARDIANCE) 25 MG tabletIndications :Type 2 diabetes mellitus with stage 3b chronic kidney disease, without long-term current use of insulin ([facility]),Stage 3b chronic kidney disease ([facility]) Take 1 tablet (25 mg total) by mouth daily. 90 tablet 025 Active omeprazole (PRILOSEC) 40 MG capsuleIndication s:Gastroesophagea l reflux disease with stricture TAKE 1 CAPSULE (40 MG TOTAL) BY MOUTH DAILY. 90 capsule 025 Active losartan (COZAAR) 50 MG tabletIndications :Essential hypertension TAKE 1 TABLET BY MOUTH EVERY DAY 90 tablet 025 Active semaglutide (OZEMPIC) 1 mg/dose injection (PEN)Indications: Type 2 diabetes mellitus with stage 3b chronic kidney disease, without long-term current use of insulin ([facility]) INJECT 1MG INTO THE SKIN ONCE A WEEK 3 mL 025 Active semaglutide (OZEMPIC) 1 mg/dose injection (PEN)Indications: Type 2 diabetes mellitus with stage 3b chronic kidney disease, without long-term current use of insulin ([facility]) Inject 1 mg into the skin once a week. 3 mL 024 2024 Discontinued Active Problems Problem Noted Date Diagnosed Date Non-recurrent bilateral ingu inal hernia without obstruction or gangrene 10/31/2024 Cervical radiculopathy 05/03/2024 Severe persistent asthma wit h acute exacerbation ([facility]) 11/16/2023 Thyroid enlargement 09/01/2022 Calculus of gallbladder with out cholecystitis without obstruction 09/01/2022 Asymptomatic premature ventricular contractions 09/01/2022 Abnormal resting electrocardiogram findings 11/2022 Congestive heart failure wit h left ventricular diastolic dysfunction ([facility]) 09/01/2022 Mucopurulent chronic bronchitis ([facility] ) 07/14/2022 Elevated IgE level 07/14/2022 Chronic cough 05/19/2022 Moderate persistent asthma without complication ([facility]) 05/19/2022 Hypersomnia 05/19/2022 Psychophysiological insomnia 05/19/2022 Seasonal allergic rhinitis due to pollen 022 Atypical chest pain 03/18/2020 Hypomagnesemia 08/07/2019 Primary osteoarthritis of right knee 03/21/2019 Chronic obstructive asthma ([facility]) 03/2019 Night sweats 07/03/2018 Stage 3b chronic kidney disease 12/27/2017 Anemia 12/26/2017 Vitamin B12 deficiency 12/26/2017 Sciatica 05/31/2017 Gastroesophageal reflux disease with stricture 0 04/01/2017 Secondary hyperparathyroidism ([facility]) 06/30/20 16 Diabetic peripheral neuropathy ([facility]) 05/21/2016 Enlarged prostate without lo wer urinary tract symptoms (luts) 01/16/2016 Orthostatic hypotension 01/16/2016 Male erectile disorder 11/24/2015 OAB (overactive bladder) 11/24/2015 AC (acromioclavicular) joint arthritis 6 Shoulder impingement, right 09/23/2015 Shoulder pain, bilateral 08/19/2015 Low back pain 07/09/2015 Chronic idiopathic constipation 06/03/2015 Lumbar radiculopathy 02/25/2015 Stomatitis, ulcerative 12/10/2014 FERMIN (obstructive sleep apnea) 02/28/2014 Class 1 obesity due to exces s calories without serious comorbidity with body mass index (BMI) of 33.0 to 33.9 in adult 03/09/2013 Polyposis coli 03/09/2013 Benign familial tremor 10/25/2012 Type 2 diabetes mellitus wit h stage 3b chronic kidney disease, without long-term current use of insulin ([facility]) 07/25/2012 Hyperlipidemia, unspecified hyperlipidemia type 07/25/2012 Acquired hypothyroidism 07/25/2012 Osteoarthritis of knee 07/25/2012 Mild intermittent asthma with acute exacerbation ([facility]) 05/10/2012 Reflux esophagitis 05/10/2012 Essential hypertension PAD (peripheral artery disease) Sleep apnea Resolved Problems Problem Noted Date Diagnosed Date Resolved Date Headache 06/12/2018 08/16/2018 H/O: iron deficiency anemia 12/27/2017 08/16/2018 Renal insufficiency syndrome 08/15/2014 06/03/2022 Allergic rhinitis 02/28/2014 08/16/2018 Acute bronchitis, unspecified organism 07/20/2013 08/16/2018 Encounter for preventive health examination 05/10/2012 08/16/2018 Encounters Date Type Department Care Team Description 01/30/2025 Telephone [facility] [place] [address], [address] [place] [address] Frank Nielsen MD Referral (Eye dr appt tomorrow) 01/29/2025 Scan [place] SRVCS Scanned, [facility] 01/17/2025 Orders Only [facility] [place] [address], [address] [place] [address] Frank Nielsen MD 01/15/2025 Telephone [facility] [place] [address], [address] [place] [address] Frank Nielsen MD Referral 12/11/2024 Telephone [facility] [place] [address] [place] [address] Frank Nielsen MD Problem 12/07/2024 Telephone [facility], [place] [address] [place], [place] [id number] Savi Barlow, RN Follow Up Call; Results 11/30/2024 Telephone [facility] [place] [address], [address] [place] [address] Frank Nielsen MD Medication Question 11/30/2024 Telephone [facility] [place] [address], [address] [place] [address] Frank Nielsen MD Lab Results (Folic acid , Vitamin D, BMP, Iron panel, CBC) 11/29/2024 1:53 PM CDT - 11/29/2024 11:59 PM CDT Hospital Encounter [facility] [place] [address] Niles Darling, CHRISTOPHER Discharge Disposition: Home or Self Care (Routine Discharge) 11/29/2024 1:50 PM CDT - 11/29/2024 1:52 PM CDT Hospital Encounter [facility] Non [place]vasive [place] [address] Ani Burnett, CHRISTOPHER-C David Bradshaw MD Discharge Disposition: Home or Self Care (Routine Discharge) 11/29/2024 Orders Only [facility] [address] [facility] [place] [id number] Frank Nielsen MD 11/29/2024 Orders Only [facility] [place] [address] Niles Darling NP 11/29/2024 Travel 11/29/2024 Telephone [facility] [address] [facility] [place] [phone] Frank Nielsen MD Medication Information 11/28/2024 Scan [facility] SRVCS Scanned, [facility] from Last 3 Months Immunizations Immunization Administration Dates Next Due Fluzone High Dose - >Age 65 (Prefilled Syringe) 06/03/2022,05/26/2021,07/09/2020,2018 Influenza Adult (Generic) 05/17/2023,07/03/2018 MODERNA COVID-19 (12+) MRNA, LNP-S, PF, 100 MCG/ 0.5 ML DOSE 10/31/2020,09/24/2020 PFIZER COVID-19 (MI CAP), MRNA, LNP-S, PF, 30 MCG/0.3 ML CRESCENCIO-SUCROSE, IM 09/28/2021 PFIZER COVID-19 BIVALENT (12 +) mRNA, LNP-S, PF, 30 MCG/0.3 ML DOSE 06/03/2022 Pneumococcal (Pneumovax 23) 07/05/2014 Pneumococcal (Prevnar 13) 07/03/2018 Shingrix 07/18/2023,05/17/2023 Td (Tenivac) preservative free 07/09/2020 Zoster (Zostavax) [address] Unt/0.65Ml 07/11/2013 Family History Medical History Relation Comments VA Brother Hypertension Father Asthma Mother Diabetes Mother Hyperlipidemia Mother Hypertension Mother VA Mother Stroke Mother VA Paternal Grandmother Stroke Paternal Grandmother Relation Status Comments Brother (Age 63) Father (Age 73) Mother (Age 73) Paternal Grandfather (Age 88) Paternal Grandmother (Age 87) Social History Tobacco Use Types Packs/Day Years Used Date Smoking Tobacco: Never Passive Smoke Exposure: Never Smokeless Tobacco: Never Tobacco Cessation:Counseling Given: No Comments:NO Alcohol Use Standard Drinks/Week Comments Yes 1 (1 standard drink = 0.6 oz pur e alcohol) AUDIT-C Answer Date Recorded Q1: How often do you have a drink containing alc ohol? 2-4 times a month 06/14/2023 Q2: How many drinks containi ng alcohol do you have on a typical day when you are drinking? 1 or 2 06/14/2023 Q3: How often do you have si x or more drinks on one occasion? Never 06/14/2023 PHQ-2 Answer Date Recorded Patient Health Questionnaire-2 Score 0 10/31/2024 Sex and Gender Information Value Date Recorded Sex Assigned at Male 10/30/2024 11:15 AM STAGE RIGGER Legal Sex Male 9:58 AM CDT Gender Identity Not on file Sexual Orientation Not on file Occupation Industry Job Start Date Job End Date Not on file Not on file Not on file Not on file Last Filed Vital Signs Vital Sign Reading Time Taken Comments Blood Pressure 110/64 11/07/2024 10:50 AM CDT Pulse 77 11/07/2024 10:50 AM CDT Temperature 36.9 C (98.5 F) 10/31/2024 11:20 AM STAGE RIGGER Respiratory Rate 16 10/31/2024 11:20 AM STAGE RIGGER Oxygen Saturation 99% 11/07/2024 10:50 AM CDT Inhaled Oxygen Concentration - - Weight 103.4 kg (228 lb) 11/07/2024 10:50 AM CDT Height 185.4 cm (6' 1) 11/07/2024 10:50 AM CDT Body Mass Index 30.08 11/07/2024 10:50 AM CDT Plan of Treatment Upcoming Encounters Date Type Department Care Team (Late st Contact Info) Description 03/19/2025 9:30 AM CDT Office Visit [facility] [facility], [address] [address] David Bradshaw MD Three [facility]. [address] [address] 07/31/2025 2:00 PM STAGE RIGGER Office Visit [facility] [address] [facility], [address] [place] [address] Shannan Goa APRN [address] [facility] [address] [place] [address] Health Maintenance Due Date Last Done Comments ASCVD Statin 1945 RSV Immunization or 60+ Years (1 - 1-dose 75+ series) 2022 COVID-19 Vaccine ( season) 2024 07/18/2023, 06/03/2022, 09/28/2021, Additional history exists Annual Medicare Wellness Visit 06/15/2024 06/14/2023 Diabetes: Retinopathy Eye Exam 07/06/2024 07/06/2023, 11/02/2021, 01/07/2021, Additional history exists Hemoglobin A1C 05/02/2025 10/30/2024, 09/29, 10/17/2023, Additional history exists Kidney Health Evaluation 10/30/2025 10/30/2024 Lipid Panel 10/30/2025 10/30/2024, 01/27, 09/01/2022, Additional history exists DTaP, Tdap and Td Vaccines (1 - Tdap) 07/09/2030 07/09/2020 Postponed from 07/10/2020 (Future Appointment) Colorectal Cancer Screening Colonoscopy (10 Years) Discontinued 11/03/2016, 11/03/2016 Pneumococcal Vaccine: 50+ Years Completed 07/03/2018, 07/05/2014 Hepatitis C Completed 06/16/2023 Zoster Vaccines Completed 07/18/2023, 04/29, 07/11/2013 PHQ-2 (Physician [place]) Completed 10/31/2024 Meningococcal B Vaccine Aged Out No l onger eligible based on patient's age to complete this topic Meningococcal Vaccine Aged Out No moe sinai eligible based on patient's age to complete this topic RSV Immunizations Under 20 Months Aged Out No longer eligible based on patient's age to complete this topic Procedures Procedure Name Priority Date/Time Associated Diagnosis Comments STRESS TEST ONLY, EXERCISE Routine 11/29/2024 3:32 PM CDT Atypical chest pain VITAMIN D, 25 OH Routine 11/29/2024 2:06 PM CDT Body mass index 29.0-29.9, adult Bariatric surgery status Other specified intestinal malabsorption (HHS/HCC) VITAMIN B1 THIAMINE Routine 11/29/2024 2 :06 PM CDT Body mass index 29.0-29.9, adult Bariatric surgery status Other specified intestinal malabsorption (HHS/HCC) IRON SAT PANEL (IRON,IBC,%SAT) Routine 11/29/2024 2:06 PM CDT Body mass index 29.0-29.9, adult Bariatric surgery status Other specified intestinal malabsorption (HHS/HCC) FOLIC ACID SERUM Routine 11/29/2024 2:06 PM CDT Body mass index 29.0-29.9, adult Bariatric surgery status Other specified intestinal malabsorption (HHS/HCC) CBC W/DIFF AUTOMATED Routine 11/29/2024 2:06 PM CDT Body mass index 29.0-29.9, adult Bariatric surgery status Other specified intestinal malabsorption (HHS/HCC) BASIC METABOLIC PANEL Routine 11/29/2024 2:06 PM CDT Type 2 diabetes mellitus with stage 3b chronic kidney disease, without long-term current use of insulin (CMS/HCC HHS/HCC) Stage 3b chronic kidney disease (CMS/HCC) LIPID PANEL Routine 10/30/2024 11:25 AM STAGE RIGGER Hyperlipidemia, unspecified hyperlipidemia type HEMOGLOBIN, GLYCOSYLATED Routine 10/30/2024 11:25 AM STAGE RIGGER Type 2 diabetes mellitus with stage 3b chronic kidney disease, without long-term current use of insulin (CMS/HCC HHS/HCC) DIABETIC RETINOPATHY EXAM (POSITIVE)(SCAN ORDER) Routine 07/06/2023 HEPATITIS C ANTIBODY Routine 06/16/2023 12:36 PM CDT Need for hepatitis C screening test COLONOSCOPY Routine 11/03/2016 12:00 AM STAGE RIGGER from Last 3 Months or Most Recently Relevant to Health Maintenance Results * STRESS TEST ONLY, EXERCISE (11/29/2024 3:32 PM CDT) 11/29/2024 3:32 PM CDT Narrative [facility] - 11/30/2024 6:53 PM CDT STRESS TEST TRACING ONLY Pat.Name: DEX PLASENCIA.ID: [id number] .Date: 11/29/2024 Exam Time: 3:32:00 PM Study Type:[place] STRESS TEST TRACING ONLY Height: 73 in Weight: 228 lb BSA: 2.28 m2 Age: 9 1945,79Y Sex: M Pat. Stat.:Outpatient Reason for Study:Chest pain, Shortness of breath History / Clinical:Diabetes, Hypertension Race: B Surgery: None Medications:Tylenol, Albuterol, Lipitor, Calcitrol, Zyrtec, Jardiance, Linzess, Losartan, Nortriptyline, Omeprazole, Propranolol, Ozempic ++++++++++++++++++++++++++++++++++++ SUMMARY: ++++++++++++++++++++++++++++++++++++ Stress conclusion: 1. Clinically negative. 2. Electrocardiographically negative treadmill test for ischemia. 3. Adequate exercise capacity. 4. Blood pressure response was normal. 5. Bob Treadmill Score is 6, which indicates low risk. ++++++++++++++++++++++++++++++++++++ STRESS: ++++++++++++++++++++++++++++++++++++ Baseline Vital Signs: ECG: Normal sinus rhythm HR: 75 bmp Rest BP: 124/69 Treadmill Test Protocol: [place] Duration: 06:00 min:sec Max. Workload (METS): 7.1 Stress Test Results: Max HR: 132 bmp Target HR: 143 bmp % Target: 92 % Max BP: 179/77 Max RPP: [id number] Symptoms and Complications: Terminated: Attainment of adequate heart rate, Shortness of breath Symptoms: Shortness of breath, Leg fatigue Stress ECG Interp: No ischemic changes, Sinus tachycardia <Electronic Signature> 11/30/2024 06:53 PM David Bradshaw M.D. Procedure Note David Bradshaw MD - 11/30/2024 STRESS TEST TRACING ONLY Pat.Name: DEX PLASENCIA ID: [id number] .Date: 11/29/2024 Exam Time: 3:32:00 PM Study Type:[place] STRESS TEST TRACING ONLY Height: 73 in Weight: 228 lb BSA: 2.28 m2 Age: 9 1945,79Y Sex: M Pat. Stat.:Outpatient Reason for Study:Chest pain, Shortness of breath History / Clinical:Diabetes, Hypertension Race: B Surgery: None Medications:Tylenol, Albuterol, Lipitor, Calcitrol, Zyrtec, Jardiance, Linzess, Losartan, Nortriptyline, Omeprazole, Propranolol, Ozempic ++++++++++++++++++++++++++++++++++++ SUMMARY: ++++++++++++++++++++++++++++++++++++ Stress conclusion: 1. Clinically negative. 2. Electrocardiographically negative treadmill test for ischemia. 3. Adequate exercise capacity. 4. Blood pressure response was normal. 5. Bob Treadmill Score is 6, which indicates low risk. ++++++++++++++++++++++++++++++++++++ STRESS: ++++++++++++++++++++++++++++++++++++ Baseline Vital Signs: ECG: Normal sinus rhythm HR: 75 bmp Rest BP: 124/69 Treadmill Test Protocol: [place] Duration: 06:00 min:sec Max. Workload (METS): 7.1 Stress Test Results: Max HR: 132 bmp Target HR: 143 bmp % Target: 92 % Max BP: 179/77 Max RPP: [id number] Symptoms and Complications: Terminated: Attainment of adequate heart rate, Shortness of breath Symptoms: Shortness of breath, Leg fatigue Stress ECG Interp: No ischemic changes, Sinus tachycardia <Electronic Signature> 11/30/2024 06:53 PM David Bradshaw M.D. Ani GUAN [facility] DAVID DURHAM Final Result [facility] RAD * IRON SAT PANEL (IRON,IBC,%SAT) (11/29/2024 2:06 PM CDT) IRON 66 65.0 - 175.0 MCG/DL 11/29/2024 3:11 PM CDT [facility] IRON BINDING CAPACITY 294 250 - 450 MCG/DL 11/29/2024 3:11 PM CDT [facility] IRON SATURATION 22 20 - 55 % 3:11 PM CDT [facility] 11/29/2024 2:06 PM CDT Niles Darling NP LABORATORY Final Result [facility] [address] [place] [address], [place] [phone] * (ABNORMAL) BASIC METABOLIC PANEL (11/29/2024 2:06 PM CDT) GLUCOSE 56(L) 70 - 99 MG/DL 11/29/2024 3:11 PM CDT [facility] BUN 25(H) 7 - 18 MG/DL 11/29/2024 3:11 PM CDT [facility] CREATININE S/P/B 1.87(H) 0.7 - 1.3 MG/DL 11/29/2024 3:11 PM CDT [facility] SODIUM S/P/B 135(L) 136 - 145 MMOL/L 11/29/2024 3:11 PM CDT [facility] POTASSIUM S/P/B 4.2 3.5 - 5.1 MMOL/L 11/29/2024 3:11 PM CDT [facility] CHLORIDE S/P/B 104 97 - 115 MMOL/L 11/29/2024 3:11 PM CDT [facility] CO2 27.3 21 - 32 MMOL/L 11/29/2024 3:11 PM CDT [facility] CALCIUM S/P/B 9.5 8.5 - 10.1 MG/DL 11/29/2024 3:11 PM CDT [facility] ANION GAP 3.7 2 - 10 MMOL/L 11/29/2024 3:11 PM CDT [facility] BUN CREATININE RATIO 13.4 6 - 26 11/29/2024 3:11 PM CDT [facility] GFR ESTIMATE 37(L) >90 ML/MIN/1.7 3 M2 11/29/2024 3:11 PM CDT [facility] Comment: NOTE: eGFR is not calculated for patients <18 years of age or gender unknown. This is an estimated GFR calculation using the new CKD EPI creatinine equation without race and so does not require a correction factor for race. This estimated GFR should not be used for calculating drug doses. 11/29/2024 2:06 PM CDT Frank Nielsen MD LABORATORY Final R esult [facility] [address] [place] [id number], * FOLIC ACID SERUM (11/29/2024 2:06 PM CDT) [facility] FOLATE 13.6 3.1 - 17.5 NG/ML 11/29/2024 3:24 PM CDT [facility] 11/29/2024 2:06 PM CDT Niles Darling NP LABORATORY Final Result [facility] [address] [place] [address], [place] [phone] * (ABNORMAL) CBC W/DIFF AUTOMATED (11/29/2024 2:06 PM CDT) [facility] WBC 5.46 4.5 - 11.0 x10'3/uL 11/29/2024 2:47 PM CDT [facility] RBC 4.79 4.70 - 6.10 x10'6/uL 11/29/2024 2:47 PM CDT [facility] HGB 14.6 14.0 - 18.0 G/DL 11/29/2024 2:47 PM CDT [facility] HCT 44.1 43.0 - 54.0 % 11/29/2024 2:47 PM CDT [facility] MCV 92.1 80.0 - 94.0 FL 11/29/2024 2:47 PM CDT [facility] MCH 30.5 27.0 - 31.0 PG 11/29/2024 2:47 PM CDT [facility] MCHC 33.1 32.0 - 36.0 G/DL 11/29/2024 2:47 PM CDT [facility] RDW 14.6(H) 11.5 - 14.5 % 11/29/2024 2:47 PM CDT [facility] PLT 300 130 - 400 x10'3/uL 11/29/2024 2:47 PM CDT [facility] MPV 9.7 9.3 - 12.2 FL 11/29/2024 2:47 PM CDT [facility] DIFFERENTIAL TYPE AUTOMATED DIFFERENTIAL 11/29/2024 2:47 PM CDT [facility] NEUTROPHILS % 39.4 % 11/29/2024 2:47 PM CDT [facility] LYMPHOCYTES % 42.3 % 11/29/2024 2:47 PM CDT [facility] MONOCYTES % 11.0 % 11/29/2024 2:47 PM CDT [facility] EOSINOPHILS 6.6 % 11/29/2024 2:47 PM CDT [facility] BASOPHILS 0.5 % 11/29/2024 2:47 PM CDT [facility] IMMATURE GRANS % 0.2 % 11/30/19 2:47 PM CDT [facility] ABS. NEUTROPHILS 2.15 1.80 - 7.70 x10'3/uL 11/29/2024 2:47 PM CDT [facility] ABS. LYMPHOCYTES 2.31 1.00 - 4.80 x10'3/uL 11/29/2024 2:47 PM CDT [facility] ABS. MONOCYTES 0.60 0.30 - 0.82 x10'3/uL 11/29/2024 2:47 PM CDT [facility] ABS. EOSINOPHILS 0.36 0.04 - 0.54 x10'3/uL 11/29/2024 2:47 PM CDT [facility] ABS. BASOPHILS 0.03 0.01 - 0.08 x10'3/uL 11/29/2024 2:47 PM CDT [facility] ABS. IMMATURE GRANULOCYTES 0.01 0.00 - 0.49 x10'3/uL 11/29/2024 2:47 PM CDT [facility] 11/29/2024 2:06 PM CDT us Niles Darling NP LABORATORY Final Result [facility] [address] [place] [address], * VITAMIN B1 THIAMINE (11/29/2024 2:06 PM CDT) VITAMIN B1 S/P/B 11 8 - 30 nmol/L 12/06/2024 2:07 PM CDT Hol[facility] KANDI LY Comment: Vitamin supplementation within 24 hours prior to blood draw may affect the accuracy of the results. This test was developed and its analytical performance characteristics have been determined by [facility] [place], [place]. It has not been cleared or approved by the U.S. Food and Drug Administration. This assay has been validated pursuant to the CLIA regulations and is used for clinical purposes. Test Performed by [facility], [facility], [address] [place], [place] Jared Ulloa M.D., Ph.D., Director of Laboratories , CLIA [id number] 11/29/2024 2:06 PM CDT Niles Darling NP LABORATORY Final Result Performing Organization Address City/[facility]/ZIP Co de Phone Number [facility] [address] [place], [place] , [place] [phone] * VITAMIN D, 25 OH (11/29/2024 2:06 PM CDT) Pathologist [facility] VITAMIN D 25 HYDROXY S/P/B 43 30 - 100 NG/ML 11/29/2024 3:16 PM CDT [facility] Comment: INTERPRETATION DEFICIENT <20 INSUFFICIENT 20-29 SUFFICIENT 30-100 11/29/2024 2:06 PM CDT Niles Darling NP LABORATORY Final Result [facility] [address] [place] [address], [place] [phone] * HEMOGLOBIN, GLYCOSYLATED (10/30/2024 11:25 AM STAGE RIGGER) HGB A1C 5.2 <5.7 % 10/30/2024 3:39 PM STAGE RIGGER [facility] Comment: ADA GUIDELINES 2010 5.7 TO 6.4% INCREASED RISK OF DIABETES > OR = 6.5% CONSISTENT WITH DIABETES ESTIMATED AVG GLUCOSE 103 mg/dL 10/30/2024 3:39 PM [facility] 10/30/2024 11:2 5 AM STAGE RIGGER Frank Nielsen MD LABORATORY Final R esult [facility] [address] [place] [address], [place] [phone] * LIPID PANEL (10/30/2024 11:25 AM STAGE RIGGER) CHOLESTEROL 122 <200 MG/DL 10/30/2024 12:28 PM [facility] TRIGLYCERIDES 61 <150 MG/DL 10/30/2024 12:28 PM [facility] HDL 66 >40.0 MG/DL 10/30/2024 12:28 PM [facility] LDL (CALCULATED) 44 <100 MG/DL 10/31/19 12:28 PM [facility] NON HDL CHOLESTEROL 56 <130 MG/DL 10/30 12:28 PM [facility] CHOL/HDL RATIO 1.8 0.0 - 4.5 10/30/2024 12:28 PM [facility] VLDL CALCULATION 12 5 - 55 MG/DL 10/30/2024 12:28 PM [facility] LIPID INTERPRETATION 10/30/2024 12:28 PM [facility] Comment: NIH CONCENSUS REPORT RECOMMENDATIONS: ADULT CHILD LOW RISK: CHOLESTEROL <200 <170 TRIGLYCERIDE <150 --- HDL >=60 --- LDL <100 <110 BORDERLINE: CHOLESTEROL 200-239 170-199 TRIGLYCERIDE 150-199 --- HDL 40-59 --- LDL 100-159 110-129 HIGH RISK: CHOLESTEROL >=240 >=200 TRIGLYCERIDE >=200 --- HDL <40 --- LDL >=160 >=130 10/30/2024 11:2 5 AM STAGE RIGGER Frank Nielsen MD LABORATORY Final R esult Performing Organization Address [facility] Co de Phone Number [facility] [address] [place] [address], [place] [phone] * DIABETIC RETINOPATHY EXAM (POSITIVE)(SCAN) (07/06/2023) [facility] Scanned SCANNING Final Resu lt Performing Organization Address [facility] de Phone Number [facility] ONBASE * HEPATITIS C ANTIBODY ([facility] ONLY) (06/16/2023 12:36 PM CDT) HEPATITIS C AB NON-REACTI VE NON-REACT JEREMY 06/16/2023 9:47 PM CDT [facility] Comment: ANTIBODIES TO HCV NOT DETECTED. DOES NOT EXCLUDE THE POSSIBILITY OF EXPOSURE TO HCV. 06/16/2023 12:3 6 PM CDT Frank Nielsen MD LABORATORY Final R esult Performing Organization Address [facility] Co de Phone Number [facility] [address] [place] [address], [place] [phone] * Colonoscopy (11/03/2016 12:00 AM STAGE RIGGER) 11/03/2016 11/03/2016 Narrative [facility] TO EPIC CONVERSION - 11/03/2016 12:00 AM STAGE RIGGER Documented hx of procedure Procedure Note Rahat Seals MD - 07/02/2018 Documented hx of procedure Rahat Alberts Md, MD GI PROCEDURE ORDERABLES Final Result [facility] TO EPIC CONVERSION from Last 3 Months or Most Recently Relevant to Health Maintenance Insurance [employer] Care Teams Check Airman Relationship Specialty Start Date End Date Frank Nielsen MD [address] [place] [address] PCP - General 03/08/17 David Bradshaw MD Three [facility]. [address] [place] [address] [place] Handle Rounder Operator CARDIOVASCULAR DISEASE 08/24/18 Ani Burnett, OVERCOILER-C Three [facility]. [address] [place] [address] Nurse Practitioner CARDIOLOGY 06/14/23 Adonis Mirza, OD [address] [place] [address] (work) Career Developer 06/14/23
--- OUTSIDE RECORDS SUMMARY | 2025-02-14 12:48 | XMS_ITS | Encounter Summary ---
Author Organization [facility] Address [address] [place] [address] Phone Care Team Providers Care Contaminated Land Consultant Name Role Phone Frank Nielsen MD Primary Care Provider [phone] Naye Nunn MD Unavailable [phone] Encounter Details Date Type Department Care Team (Latest Contact Info) Description 03/22/2016 Orders Only [facility] Scanning, Provider Social History Tobacco Use Types Packs/Day Years Used Date Smoking Tobacco: Never Assessed Sex and Gender Information Value Date Recorded Sex Assigned at Not on file Legal Sex Male 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 PM 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 Gender Identity Not on file Sexual Orientation Not on file documented as of this encounter Plan of Treatment Upcoming Encounters Date Type Department Care Team (Latest Contact Info) Description 09/04/2108 Orders Only [facility] CLINCONV ProviderJuventino MD [address] [place] [address] documented as of this encounter Procedures Procedure Name Priority Date/Time Associated Diagnosis Comments SCAN - LABS 03/22/2016 documented in this encounter Results * SCAN - LABS (03/22/2016) us Provider Scanning Final Result documented in this encounter Visit Diagnoses Not on filedocumented in this encounter Care Teams Contaminated Land Consultant Relationship Specialty Start Date End Date Frank Nielsen MD [address] [facility] [address] [place] [address] PCP - General 11/22/16 Naye Nunn MD [address] [address] Consulting Physician Nephrology 04/04/19 documented as of this encounter
--- OUTSIDE RECORDS SUMMARY | 2025-02-14 12:48 | XMS_ITS | Encounter Summary ---
Author Organization [facility] Care Team Providers Care Administrative Nursing Supervisor Name Role Phone Frank Nielsen MD Primary Care Provider [phone] Naye Nunn MD Unavailable [phone] Encounter Details Date Type Department Care Team (Latest Contact Info) Description 06/30/2018 Orders Only [facility] CLINJuventino Oshea MD [address] [place] [address] Social History Tobacco Use Types Packs/Day Years Used Date Smoking Tobacco: Never Smokeless Tobacco: Never Alcohol Use Standard Drinks/Week Comments Yes 0 (1 standard drink = 0.6 oz pur e alcohol) social Sex and Gender Information Value Date Recorded Sex Assigned at Not on file Legal Sex Male 8:05 PM VENEER CLIPPER Gender Identity Not on file Sexual Orientation Not on file documented as of this encounter Plan of Treatment Upcoming Encounters Date Type Department Care Team (Latest Contact Info) Description 09/04/2108 Orders Only Luis Miguel CLINJuventino Oshea MD [address] [place] [phone] documented as of this encounter Procedures Procedure Name Priority Date/Time Associated Diagnosis Comments SCAN - LABS 07/03/2018 12:00 AM VENEER CLIPPER documented in this encounter Results * SCAN - LABS (07/03/2018 12:00 AM VENEER CLIPPER) Narrative 07/03/2018 12:00 AM VENEER CLIPPER Ordered by an unspecified provider. us Historical Provider MD Final Res ult documented in this encounter Visit Diagnoses Not on filedocumented in this encounter Care Teams Administrative Nursing Supervisor Relationship Specialty Start Date End Date Frank Nielsen MD [address] [address] PCP - General 11/22/16 Naye Nunn MD [address] [address] Consulting Physician Nephrology 04/04/19 documented as of this encounter
--- OUTSIDE RECORDS SUMMARY | 2025-02-14 12:48 | XMS_ITS | Clinical Summary ---
Author Organization [facility] Address [address] [place] [address] Care Team Providers Care Screen Machine Operator Name Role Phone Frank Nielsen MD Primary Care Provider [phone] Naye Nunn MD Unavailable [phone] Allergies Active Allergy Reactions Criticality Noted Date [...] with acute exacerbation 05/10/2012 Reflux esophagitis 05/10/2012 Encounters Date Type Department Care Team Description 01/15/2025 Telephone [facility] Department of Surgery [address] [facility] 12th [place] [address] [place] [address] Tami Brooks RMA Additional Services Or Orders 12/13/2024 10:30 AM CDT Office Visit [facility] Surgery [address] [place] [address] [address] [place] [address] Moshe Eaton MD Bilateral inguinal hernia without obstruction or gangrene, recurrence not specified 12/12/2024 Telephone [facility] Department of Surgery [address] [facility] 12th [place] [address] [place] [phone] Isi Deleon 12/11/2024 Telephone [facility] Surgery [address] [facility] [address] [place] [phone] Isi Deleon 12/06/2024 3:00 PM CDT - 12/06/2024 3:30 PM CDT Surgery [facility] Endoscopy [address] [place] [address] Guille Shore MD EGD SG/OA Interventional 12/06/2024 2:55 PM CDT Anesthesia Event [facility]oscopy [address] [place] [address] Arnav Hale MD 12/06/2024 1:32 PM CDT - 12/06/2024 3:45 PM CDT Hospital Encounter [facility] Endoscopy [address] [place] [address] Guille Shore MD Discharge Disposition: Discharge to home or self care 11/28/2024 Telephone [facility] [address] [facility] [address] [place] [phone] Ney Kenny MD 11/27/2024 Telephone [facility] [address] [place] [phone] Lana Mo RN GI Preprocedure 11/26/2024 3:00 PM CDT Office Visit [facility] Minimally Invasive Surgery [address] [facility] [address] [place] [address] Niles Darling NP Other specified intestinal malabsorption (Primary Dx); BMI 29.0-29.9,adult; Bariatric surgery status; Epigastric abdominal pain; Gastroesophageal reflux disease, unspecified whether esophagitis present from Last 3 Months Surgical History Surgery Date Site/Laterality Comments SLEEVE GASTROPLASTY 08/29/2016 - 08/28/2017 TOTAL KNEE ARTHROPLASTY 06/07/2019 Right KNEE SURGERY 08/29/2017 - 08/28/2018 Left Medical History Medical History Date Comments Personal history of other en docrine, nutritional and metabolic disease History of hyperthyr oidism - (Added by TW Conv) Personal history of irradiation S/P radioactive iodine thyroid ablation - (Added by TW Conv) Hypertension GERD (gastroesophageal reflux disease) Type 2 diabetes mellitus (HCC) Hyperlipidemia Sleep apnea Osteoarthritis Chronic kidney disease Depression Asthma Hiatal hernia Family History Medical History Relation Name Comments Cancer Father Family history of malignant neoplasm - (Added by TW Conv) Hypertension Father Family history of hypertension - (Added by TW Conv) Diabetes Mother Family history of diabetes mellitus - (Added by TW Conv) Heart disease Mother Family history of cardiac disorder - (Added by TW Conv) Diabetes Other 1 Family history of diabetes mellitus - (Added by TW Conv) Heart disease Other 2 Family history of cardiac disorder - (Added by TW Conv) Hypertension Other 3 Family history of hypertension - (Added by TW Conv) Cancer Other 4 Family history of malignant neoplasm - Relation: Grandparent (Added by TW Conv) Relation Name Status Comments Father Mother Other 1 Other 2 Other 3 Other 4 Social History Tobacco Use Types Packs/Day Years [...] on file Legal Sex Male 8:05 PM MILLWRIGHT Gender Identity Not on file Sexual Orientation Not on file Occupation Industry Job Start Date Job End Date retired Not on file Not on file Not on file Obstetrics History Last Filed Vital Signs Vital Sign Reading [...] Info) Description 09/04/2108 Orders Only [facility] CLINCONV Provider, MD Juventino [address] [place] [address] Health Maintenance Due Date Last Done Comments Albumin Creatinine Ratio, Urine 1945 Depression Screening 1945 Hepatitis C Screening 1945 Dilated Eye Exam 1945 Foot Exam 1945 Hepatitis B Screening 1965 Well Visit 65+ 2012 DTaP/Tdap/Td Vaccine (1 - Tdap) 07/10/2020 0 Hemoglobin A1C 04/16/2024 10/17/2023, 01/27, 03/10/2020, Additional history exists Covid-19 Vaccine (3 - 2023-2 5 season) 2024 10/31/2020, 09/24/2020 Influenza Vaccine (Season Ended) 2025 05/17/20 23, 07/03/2018 eGFR 08/14/2025 08/14/2024, 01/27, 10/17/2023, Additional history exists Lipid Panel 10/30/2025 10/30/2024, 09/29, 02/09/2023, Additional history exists Fall Risk Assessment 12/06/2025 12/06/2024 Pneumococcal vaccine 65+ Completed 07/03/2018, 02/2014 Prostate Cancer Screening-PSA Discontinued 02/09/2023 Zoster Vaccine Completed 07/18/2023, 04/29, 07/11/2013 Procedures Procedure Name Priority Date/Time Associated Diagnosis Comments POCT GLUCOSE DEVICE Routine 12/06/2024 3 :29 PM CDT ESOPHAGOGASTRODUODENOSCOPY 12/06 2:54 PM CDT BMI 29.0-29.9,adult Bariatric surgery status Epigastric abdominal pain Gastroesophageal reflux disease, unspecified whether esophagitis present EGD 12/06/2024 2:44 PM CDT POCT GLUCOSE DEVICE Routine 12/06/2024 1 :53 PM CDT EGFR Routine 08/14/2024 9:15 AM MILLWRIGHT Stage 3b chronic kidney disease (HCC) HEMOGLOBIN A1C Routine 10/17/2023 11:00 AM MILLWRIGHT LIPID PANEL Routine 10/17/2023 11:00 AM MILLWRIGHT PSA SCREEN Routine 02/09/2023 11:46 AM CDT from Last 3 Months or Most Recently Relevant to Health Maintenance Results * POCT glucose (12/06/2024 3:29 PM CDT) [facility] Glucose, POC 72 70 - 199 mg/dL Comment: Interpretive Data Glucose is assumed to be non-fasting. Fasting Glucose reference ranges are: 0 - 150 years: 70 mg/dL - 99 mg/dL Current interpretive data was last revised on 2014. POC Performer [id number] ANGIE GANNONWCH POC Device Number [id number] ANGIE GANNONWCH Blood 12/06/2024 3:29 PM CDT 12/06/2024 3:29 PM CDT Guille Davey MD LAB POCT ORDERABLES - DEVICE Final Result [facility] [address] [facility]. Room[place] [address] * EGD (12/06/2024 2:44 PM CDT) Anatomical Region Laterality Modality Other Narrative Procedure Note Guille Shore MD - 12/06/2024 2:44 PM CDT ENDOSCOPY LAB Patient Name: Tarik Larios Procedure Date: 12/06/2024 2:44 PM Date of : 1945 Admit Type: Outpatient Age: 79 Gender: Male Attending MD: Guille Davey M.D. Room: [facility] ENDOSCOPY ROOM 04 Note Status: Finalized [...] The patient tolerated the procedure well. The [id number] was introduced through the mouth, and advanced [...] following this procedure please call my officeat [phone] ([phone]) to speak to my nurses. After hours and evenings please call [phone] speak to the GI fellow legal contracts specialist. Please tell themthat Dr. Davey did your procedure and that your were instructed to have the fellow call me or thephysician covering for me to discuss the management of your condition. If you have an urgent problem, please goto the nearest emergency room and have the ER doctorcall my office during the day or [facility] transfer ([phone]) center after hours and weekends to arrange admission or transfer to our facility. - The outlined recommendations within this reportwere discussed with you following the procedure. Attending Participation: I personally performed the entire procedure. Electronically signed by Guille Davey MD Guille Davey M.D. 12/06/2024 3:04:58 PM Number of Addenda: 0 Note Initiated On: 12/06/2024 2:44 PM us Guille Davey MD ENDOSCOPY PROCEDURES Final Result * POCT glucose (12/06/2024 1:53 PM CDT) Glucose, POC 72 70 - 199 mg/dL Comment: Interpretive Data Glucose is assumed to be non-fasting. Fasting Glucose reference ranges are: 0 - 150 years: 70 mg/dL - 99 mg/dL Current interpretive data was last revised on 2014. POC Performer [id number] [facility] POC Device Number [id number] ANGIE [facility] Blood 12/06/2024 1:53 PM CDT 12/06/2024 1:53 PM CDT us Guille Davey MD LAB POCT ORDERABLES - DEVICE Final Result [facility] [address] [facility]. Department [place] [address] * (ABNORMAL) eGFR (08/14/2024 9:15 AM MILLWRIGHT) eGFR 47(L) >=60 mL/min/1. 73 m2 Comment: [...] last reviewed 2021. Blood 08/14/2024 9:15 AM MILLWRIGHT 08/14/2024 9:48 AM MILLWRIGHT Naye Nunn MD LAB BLOOD ORDERABLES Final Result Performing Organization Address [facility] Co de Phone Number [address] [address] * (ABNORMAL) Hemoglobin A1c (10/17/2023 11:00 AM MILLWRIGHT) Hgb A1C 5.9(H) 4.0 - 5.6 % ANGIE Estimated Average Glucose 123 mg/dL ANGIE Comment: The ADA recommends reporting an estimated Average Glucose (eAG) with all Hemoglobin A1c results using the equation derived from a study of 507 normal and diabetic adults. Minority populations were underrepresented and children were not included. (Diabetes Care 31:0806-5306, 2008). The eAG is not equivalent to a fasting glucose. Blood 10/17/2023 11:0 0 AM MILLWRIGHT 10/17/2023 11:16 AM MILLWRIGHT Frank Nielsen MD LAB BLOOD ORDERABLES Final Result Performing Organization Address [facility] de Phone Number [address] [address] * Lipid panel (10/17/2023 11:00 AM MILLWRIGHT) Cholesterol 136 30 - 199 mg/dL ANGIE [...] revised on 2018. HDL 63 >=40 mg/dL AGNIE HARLEY Comment: Interpretive Data Ages < or = [...] 2018. LDL, calculated 67 <=129 mg/dL ANGIE HARLEY Comment: Interpretive Data Ages < or = [...] on 2018. Non-HDL Cholesterol 73 mg/dL ANGIE HARLEY Comment: Interpretive Data Ages < or = [...] last revised on 2018. Chol/HDL ratio [address] [facility] Blood 10/17/2023 11:0 0 AM MILLWRIGHT 10/17/2023 11:16 AM MILLWRIGHT Frank Nielsen MD LAB BLOOD ORDERABLES Final Result Performing Organization Address [facility] de Phone Number [address] [place] [address] * PSA screen (02/09/2023 11:46 AM CDT) PSA-Total 0.87 <=6.20 ng/mL [facility] Comment: Interpretive Data AGE SEX REFERENCE INTERVAL [...] AM CDT 02/09/2023 12:45 PM CDT Salvador Taveras MD LAB BLOOD ORDERABLES Fi nal Result Performing Organization Address [facility] de Phone Number [address] [place] [address] from Last 3 Months or Most Recently Relevant to Health Maintenance Insurance [employer] MEDICARE HMO HU[employer]NA MEDICARE HMO HU[employer] MEDICARE HMO Advance Directives For more information, please contact: [phone] Documents on File Type Date Recorded Patient Environmental Studies Department Chair Expl anation ADVANCE DIRECTIVE 05/24/2019 12:00 AM SARAH R OF GUIDANCE AND CONTROL SYSTEM ENGINEER FINANCIAL/MEDICAL * Full Code (Latest Code Status on File) Date Activated Date Inactivated Comments 12/06/2024 1:33 PM 12/06/2024 7:50 PM * Full Code Date Activated Date Inactivated Comments 10/18/2023 9:37 AM 10/18/2023 4:17 PM * Full Code Date Activated Date Inactivated Comments 10/20/2022 11:03 AM 10/20/2022 5:50 PM Care Teams Screen Machine Operator Relationship Specialty Start Date End Date Frank Nielsen MD [address] [place] [address] PCP - General 11/22/16 Naye Nunn MD [address] [facility] [address] [place] [address] Consulting Physician Nephrology 04/04/19
--- OUTSIDE RECORDS SUMMARY | 2025-02-14 12:48 | XMS_ITS | Encounter Summary ---
Author Organization [facility] Address [facility] [place] [address] Care Team Providers Care Customer Relations Advisor Name Role Phone Frank Nielsen MD Primary Care Provider David Bradshaw MD Unavailable [phone] Ciara Weaver PharmD Unavailable [phone] Ani Burnett MUCK MINER-C Unavailable [phone] Yesica Tony MUCK MINER Unavailable [phone] Adonis Mirza OD Unavailable [phone] Encounter Details Date Type Department Care Team (Latest Contact Info) Description 05/12/2018 Abstract [facility] Rahat Seals MD Social History Tobacco Use Types Packs/Day Years Used Date Smoking Tobacco: Never Assessed Sex and Gender Information Value Date Recorded Sex Assigned at Male 10/30/2024 11:15 AM WORKDAY SENIOR ASSOCIATE Legal Sex Male 9:58 AM CDT Gender Identity Not on file Sexual Orientation Not on file documented as of this encounter Plan of Treatment Upcoming Encounters Date Type Department Care Team (Late st Contact Info) Description 03/19/2025 9:30 AM CDT [facility] [address] [place], [place] [phone] David Bradshaw MD [facility]. [address] [place], [place] [phone] 07/31/2025 2:00 PM WORKDAY SENIOR ASSOCIATE Office Visit [facility] Multispecialty Care - [facility] [address] [facility], [address] [place] [address] Murray Shannan L, CHIMNEY CONSTRUCTION SUPERVISOR [address] [facility] [address] [place] [address] documented as of this encounter Visit Diagnoses Not on filedocumented in this encounter Additional Health Concerns Infection Onset Date Last Indicated Resolved Time COVID-19 Rule Out 09/08/2021 09/08/2021 09/08/2021 9:34 AM WORKDAY SENIOR ASSOCIATE COVID-19 Rule Out 02/17/2022 02/17/2022 02/17/2022 9:41 AM CDT COVID-19 Rule Out 08/24/2023 08/24/2023 08/24/2023 3:16 PM WORKDAY SENIOR ASSOCIATE Influenza - Seasonal 08/24/2023 08/24/2023 024 12:33 AM WORKDAY SENIOR ASSOCIATE COVID-19 Rule Out 05/25/2024 05/25/2024 05/25/2024 2:37 PM CDT documented as of this encounter Care Teams Customer Relations Advisor Relationship Specialty Start Date End Date Frank Nielsen MD [address] [place] [address] PCP - General 03/08/17 David Bradshaw MD [facility]. [address] [place] [address] [employer] Sales CARDIOVASCULAR DISEASE 08/24/18 Ciara Weaver, PharmD [address] [place] [address] Pharmacist Pharmacist 09/08/18 07/09/19 Ani Burnett NP-C [address] [phone] Nurse Practitioner CARDIOLOGY 06/14/23 Yesica Tony NP [address] [phone] Nurse Practitioner UROLOGY 06/14/23 06/14/23 Adonis Mirza, OD [address] [place], [place] [phone] Senior Ui Web Developer 06/14/23 documented as of this encounter
--- NOTE | 2025-02-14 12:49 | ECG_ITS ---
Test Date: 2025-02-14 13:02:54 Measurements Intervals Haworth Rate: 64 P: 54 MS: 286 QRS: 0 QRSD: 89 T: 38 QT: 404 QTc: 419 Interpretive Statements SINUS RHYTHM WITH FIRST DEGREE AV BLOCK DELAYED PRECORDIAL R/S TRANSITION MINIMAL Q WAVES- INFERIOR LEADS BASELINE ARTIFACT- I, II, III, AVR, AVL, AVF, V4-V6 BORDERLINE ECG No previous ECG available for comparison Electronically Signed On 02-14-2025 13:15:58 CDT by Suhail Vega D.O.
[2025-02-14 13:37] LABS: Anion Gap 7 mmol/L (4-12); Blood Urea Nitrogen 21 mg/dL (9-20); Carbon Dioxide 26 mmol/L (22-30); Chloride 103 mmol/L (98-107); Estimated Glomerular Filt Rate 43; Glucose 109 mg/dL (65-110); Sodium 136 mmol/L (137-145)
[2025-02-14 13:40] LABS: Partial Thromboplastin Time 30.2 Seconds (22.3-36.8)
== END 2025-02-14 12:21 | disposition home or self-care (01) ==
LOC: ANHSURGERY 12:23
PROVIDERS: Anesthesiology; PCP Family Medicine; Visit Provider Surgery
DX: Z01.818 Encounter for other preprocedural examination (principal); K40.90 Unilateral inguinal hernia, without obstruction or gangrene, not specified as recurrent; I10 Essential (primary) hypertension; N28.9 Disorder of kidney and ureter, unspecified; E11.9 Type 2 diabetes mellitus without complications; R94.31 Abnormal electrocardiogram [ECG] [EKG]
CPT/HCPCS: 36415; 80048; 85610; 85730; 86850; 86900; 86901; 93005

== ENCOUNTER 2025-02-25 00:08 | Day surgery (SDC) | payer MEDICARE, SELFPAY ==
[2025-02-13 13:33] VITALS: BMI 28.5
--- NOTE | 2025-02-13 14:13 | PC.NURSE ---
Report to the Outpatient Waiting Room, entrance under the green pavilion located off [facility], at time ___8:30AM____ on date ___02/25/25___. Planned Procedure Time: ___10:30AM .? Time changes happen often and if your time is changed the preop area will call you the afternoon before. - You and your visitor will be asked to self-screen and do not enter if you have any COVID symptoms. Please call surgeon if you need to reschedule. - A mask is optional within the hospital at this time. Patients may have clear liquids (water, carbonated beverages, clear teas, apple juice) until 3 hours prior to surgery (7:30AM) with a maximum of 20 ounces. - No food from midnight until time of surgery and no smoking, or chewing tobacco (or any form of nicotine). No chewing gum, candy or mints. Take only the following medications with a SIP of water on the morning of surgery: ____PROPRANOLOL, TRELIGY ELLIPTA INHALER. MAY USE ALBUTEROL INHALER NEEDED DO NOT STOP ANY OF YOUR OTHER PRESCRIPTION MEDICATIONS PRIOR TO SURGERY EXCEPT THE FOLLOWING Hold all vitamins and supplements for 3 days per anesthesiologist.- LAST DOSE 02/21/25 Please no make-up, nail serbian, hairspray, perfume, deodorant, or body powder the day of surgery.? No jewelry (including any body piercings) or valuables the day of surgery, leave them at home.? Please take a shower or bath the night before, or the morning of, surgery with an antibacterial soap.? Wear comfortable, loose fitting clothing.?DO NOT SHAVE ANY HAIR FROM ABDOMEN OR GROIN. - Jewelry must be removed prior to entering the operating room.? Rings and piercings that are not removed may be cut off. - The hospital will not accept responsibility for valuables.? - Please leave all valuables, including medications, at home the day of surgery. If you are going home after surgery, a licensed pile driver operator must drive you home.? - NO public transportation without another adult if you receive anesthesia. - We recommend that an adult stay with you for 24 hours following discharge. - We also recommend that you do not drive, make important decision, drink alcoholic beverages, or take any drugs that were not prescribed by your health care provider for at least 24 hours after your discharge time. Follow any additional instructions given to you from your surgeon. Telephone instructions given to ____PATIENT and asked if any additional questions and then verbalized understanding. Patient advised to call surgeon office or pre surgery nurse liaison [phone] if any additional questions.
[2025-02-25] VITALS (14 sets, daily range): BP systolic 99–135; BP diastolic 52–80; PULSE 62–71; RESP 12–20; TEMP 36.2–36.5; O2SAT 96–100
[2025-02-25] MEDS: ACETAMINOPHEN 500 MG TABLET 1000 MG PO (08:30)
[2025-02-25] MEDS: LACTATED RINGERS 1,000 ML 30 ML IV CONT ×2 (08:30→12:16)
[2025-02-25 08:45] LABS: Glucose Point of Care 75 mg/dl (65-105)
--- NOTE | 2025-02-25 09:28 | WPDANESEPPF ---
Anes - Initial Pre Proc Eval Procedure: Operation Date: 02/25/25 10:30 Proposed Procedures p Robotic Assisted Laparoscopic Bilateral Inguinal Hernia Repair with Mesh, Possible Open - Esteban Yung MD Date/Time: 02/25/25 09:28 Surgeon: Esteban Yung MD Pre Op Diagnosis: bilateral reducible inguinal hernia Patient Data Age: 79 Gender: M Height: 1.85 m Weight: 101.6 kg Last Vital Signs Temp 36.5 C 02/25/25 08:06 Pulse 63 02/25/25 08:06 Resp 16 02/25/25 08:06 BP 106/57 L 02/25/25 08:12 Pulse Ox 99 02/25/25 08:06 O2 Del Method Room Air 02/25/25 08:06 Allergies Allergy/AdvReac Type Severity Reaction Status Date / Time penicillin G Allergy ITCHING Verified 02/13/25 13:22 NSAIDS (Non-Steroidal AdvReac AVOIDS Verified 02/13/25 13:22 Anti-Inflamma NSAIDS R/T DECREASED KIDNEY FUNCTION Home Medications ?Medication ?Instructions ?Recorded ?Confirmed ?Type atorvastatin 20 mg tablet (Lipitor) 20 mg PO DAILY 01/29/25 02/25/25 History calcitriol 0.25 mcg capsule 0.25 mcg PO DAILY 01/29/25 02/25/25 History empagliflozin 25 mg tablet 25 mg PO DAILY 01/29/25 02/25/25 History (Jardiance) losartan 50 mg tablet 50 mg PO DAILY 01/29/25 02/25/25 History mecobalamin (vitamin B12) 5,000 5,000 mcg PO QAM 01/29/25 02/25/25 History mcg disintegrating tablet omeprazole 40 mg capsule,delayed 40 mg PO DAILY 01/29/25 02/25/25 History release propranolol 60 mg tablet 60 mg PO QAM 01/29/25 02/25/25 History semaglutide 1 mg/dose (4 mg/3 mL) 1 mg subcut WEEKLY 01/29/25 02/25/25 History subcutaneous pen injector (Ozempic) albuterol sulfate 90 mcg/actuation 2 puff inhalation Q4-6H PRN 02/13/25 02/25/25 History aerosol inhaler shortness of breath or wheezing fluticasone fur. 200 mcg-umeclid 1 inh inhalation QAM 02/13/25 02/25/25 History 62.5 mcg-vilant 25 mcg inhalat.powder (Trelegy Ellipta) latanoprost 0.005 % eye drops 1 drp RIGHT EYE QPM 02/13/25 02/25/25 History tamsulosin 0.4 mg capsule 0.4 mg PO DAILY 02/13/25 02/13/25 History Laboratory Tests 02/25/25 08:42 POC Capillary Glucose 75 mg/dl (65-105) Patient hx anesthesia problems: none Family hx anesthesia problems: none Results Review: All pre-operative results and documents have been reviewed as part of the pre-operative evaluation. [facility] Past Medical History Medical History Kidney disease Hypertension Headache Diabetes Arthritis Asthma uses inhaler PRN Surgical History Surgical History History of sleeve gastrectomy Family History Family History Father Asthma Hypertension Mother Diabetes mellitus Hypertension Heart disease Social History Social History Smoking status: Never smoker Alcohol intake: current Drinks per week: 3 Do You Feel Safe in your Home?: Yes Lack of Transportation: No Lack of Food: Never True Current Housing: Decline to Answer Concerned About Future Housing: No Difficulty Paying Gas/Electric Bills: No Difficulty Paying for Meds: No Currently Unemployed: No Education: High School Diploma/GED Difficulty w/ Childcare or Family Care: No Living arrangements: with family Additional living arrangements comments: Occupation/Education: retired Spiritual care concerns: No Anes - Eval Final PreProcedure Day of Procedure 02/25/25 09:28 Patient weight: overweight Heart: regular rate and rhythm Lungs: clear to auscultation Airway: Mallampati scale class II Neurological: alert and oriented Last oral intake: >/= 8 hours ASA classification: III Emergent: no Anesthetic plan: proceed Anesthesia type and monitoring: general ETT and standard monitoring Results Review: All pre-operative results and documents have been reviewed as part of the pre-operative evaluation. Informed Consent: The patient's anesthetic plan and its attendant risks and benefits were discussed with the patient/family/POA. Questions were solicited and answers provided to the satisfaction of the patient/family/POA.
--- NOTE | 2025-02-25 09:46 | WPDHPUPDATE1 ---
History and Physical Update Update Date/Time: 02/25/25 09:46 History and Physical has been reviewed, including an updated exam of the patient. There are NO changes in the patient's condition. Risks, benefits, and alternatives have been discussed and questions answered. Patient agrees to proceed with procedure.
[2025-02-25] MEDS: ceFAZolin 2 GM/D5W 50 ML 2 GM/50 ML BAG IVPB (10:00)
[2025-02-25] MEDS: LIDO 1%/EPINEPHRINE 1:100,000 20 ML VIAL 30 ML INFILTRATE (10:33)
[2025-02-25] MEDS: BUPivacaine HCL 0.5% 10 ML AMP 30 ML INFILTRATE (10:34)
[2025-02-25] MEDS: fentaNYL CITRATE INJ (*CRX) 100 MCG/2 ML VIAL 25 MCG IV PUSH ×7 (12:19→12:57)
--- NOTE | 2025-02-25 12:21 | W.PM.PROC2 ---
Procedure Note - Detailed Date of Procedure 02/25/25 Pre-op Diagnosis Bilateral reducible inguinal hernia Post-op Diagnosis Other (Reducible indirect right inguinal hernia, no left inguinal hernia.) Procedure Performed Robotic assisted laparoscopic right inguinal hernia repair with Bard 3D mid weight mesh. 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 On examination he appeared to have a reducible right inguinal hernia. On CT scan imaging it was suggested that he might have a left inguinal hernia as well however I could not appreciate a left inguinal hernia on physical examination. He comes to the operating now for repair of the right inguinal hernia via robotic assisted approach and repair of left inguinal hernia if one is present. Findings Upon entering the abdomen the patient had an easily visible large indirect right inguinal hernia. After carefully visualization and evaluation of the left groin region there was no evidence of a indirect or direct or femoral component to a left inguinal hernia. Therefore only the right inguinal hernia was repaired with mesh. Description of Procedure After informed consent was obtained patient was brought to the operating room was placed supine position and general endotracheal anesthesia was administered. The abdomen and bilateral groin regions were then prepped and draped usual sterile fashion. A time-out was then performed correctly identifying the patient as well as procedure to be performed. He was given perioperative IV antibiotics. I 1st started by entering the abdomen left upper quadrant utilizing a 5mm Optiview port. Once inside the abdomen insufflated to adequate pneumoperitoneum of 15mmmmmercury of CO2. There were no adhesions to obscure the view of the periumbilical or bilateral groin regions. I then placed a 8mm periumbilical robotic trocar port and then 2 more 8mm robotic trocar ports on left and right sides of the abdomen. I then replaced the 5mm left upper quadrant trocar port the 10minutes trocar port. Initially performing a visual inspection of the right groin there was an obvious large indirect right inguinal hernia. There were no incarcerated contents within the hernia. Careful evaluation of the left groin region revealed no evidence of a direct, indirect, or femoral hernia defect. Therefore only the right inguinal hernia was repaired with mesh. I then started by having the iiko robot brought to the patient's bedside and docked. The robotic arms were then attached the robotic ports. Robotic instruments were then advanced into the abdomen under direct visualization. I then scrubbed out the procedure sent down the robotic console to perform the dissection. I then started a low-fat started just anterior medial to the right anterior superior iliac spine. It was carried across the lower abdomen and the right median umbilical ligament was divided with electrocautery. I then continued dissection this preperitoneal plane distally until identified the inferior epigastric vessels. Medial to the inferior epigastric vessels the large indirect inguinal hernia sac was noted be going into the internal ring. I then proceeded to dissect medial to the inferior epigastric vessels down to the pubic tubercle. The bladder on the right side was dissected off of the pubic tubercle and I dissected down into the space of Retzius for couple cm. I then proceeded to dissect out the large redundant right indirect inguinal hernia sac. Identified the vas deferens and testicular vessels and very carefully preserve these without injury. I did divide quite a bit of cremasteric muscle to separate the large hernia sac and as testicular vessels. Once I had the hernia sac dissected free of the cord structures I everted it. I further dissected the edge of the peritoneum back up onto the psoas muscle until I felt I had enough space to place the mesh without rolling up the mesh with the closure of the flap. I then measured the space and felt that a large piece of Bard 3D mid weight mesh measuring [id number] would be appropriate for the repair. A piece of mesh for the this size oriented for the right groin was then chosen and placed into the abdomen. I then placed into the dissected space and secured the mesh medially to tissue around the pubic tubercle utilizing a 2-0 Vicryl suture. Laterally the mesh was secured to the muscle anterior medial to the right anterior suprailiac spine. This is done with a 2-0 Vicryl suture as well. A 3rd 2-0 Vicryl suture was then placed approximate the mesh to the transversalis fascia at the potential direct space. The mesh laid out very nicely covering the home myopectineal orifice and there was no tension on the mesh. I then proceeded to close the peritoneal flap. This done with a running 2-0 absorbable V lock suture. The redundant hernia sac was tacked up with the closure of the peritoneum. No holes were made in the peritoneum. I then checked all the small bowel and cecum and they appeared to be normal without any injury. There was no bleeding. I then had the de Sintia room instruments removed from the abdomen and the robot undocked from the patient's bedside. I then scrubbed back into the procedure and then proceeded to irrigate out the port sites sterile saline solution. The periumbilical 8mm and the 10mm left upper quadrant trocar port were both closed utilizing 0 Vicryl suture with a suture Passer at the fascial level. The port sites were then all closed utilizing a running subcuticular 4 Monocryl suture at the skin level. The incisions were then cleaned the skin glue was applied. The patient tolerated the procedure well no complications. All sponges, needles, and instrument counts were correct at the end procedure. EBL was _25__cc. The patient was awakened and taken to recovery in stable and satisfactory condition. Implants Bard 3D mid weight mesh measuring [id number] oriented for right groin. Estimated Blood Loss 25 Drains No Packing No Pathology None sent Complications No immediate complications Condition Stable Disposition PACU [facility] Billing Surgery - Charge Forward: Surgery Billing
[2025-02-25 12:31] LABS: Glucose Point of Care 137 mg/dl (65-105)
[2025-02-25] MEDS: HYDROmorphone HCL INJ (*CRX) 1 MG/ML SYR 0.5 MG IV PUSH ×4 (13:12→13:50)
[2025-02-25] MEDS: oxyCODONE HCL (*CRX) 5 MG TAB IR PO (14:25)
== END 2025-02-25 15:50 | disposition home or self-care (01) ==
PROVIDERS: PCP Family Medicine; Visit Provider Surgery
PROC: 8E0Y4CZ Robotic Assisted Procedure of Lower Extremity, Percutaneous Endoscopic Approach (ICD-10-PCS; CPT 49650; principal; 2025-02-25 10:30)
DX: K40.90 Unilateral inguinal hernia, without obstruction or gangrene, not specified as recurrent (principal); E11.9 Type 2 diabetes mellitus without complications
CPT/HCPCS: 49650; S2900; 82948; A9270; C1781; J0690; J1100; J1171; J2004; J2405; J2704; J3010; J7120